=== PATIENT | female | born 1995 | race Caucasian/White ===

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

== ENCOUNTER 2017-03-25 19:33 | Emergency (ER) | payer OTHER, MEDICAID ==
[2017-03-25 19:49] VITALS: BP 106/69
--- NOTE | 2017-03-25 20:27 | EDM.PDOC ---
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 Worked cleaning today. No known injury. Has noted increased urinary frequency the last 2 days. Denies blood in urine. Onset: Today Onset Date: 03/25/17 Onset Time: 18:00 Duration: Intermittent Location: Reports: Abdomen Quality: Reports: Pressure Severity: Mild Improves with: Reports: None Worsens with: Reports: None Context: Reports: Activity Associated Symptoms: Reports: Other (urinary frequency) left abdominal Pain Score (Numeric/FACES): 6 - Related Data Allergies Allergy/AdvReac Type Severity Reaction Status Date / Time No Known Allergies Allergy Verified 03/25/17 19:55 Home Meds: Home Meds B12/Levomefolate Calcium/B-6 [Folbic Rf Tablet] 1 each PO DAILY 03/25/17 [ History] Vits #93/Iron Fum/FA [ Formula Tablet] 1 each PO DAILY [History] Past Medical History HEENT History: Reports: Impaired Vision Cardiovascular History: Reports: None Respiratory History: Reports: None Other Respiratory History: seasonal allergies Gastrointestinal History: Reports: None Genitourinary History: Reports: UTI, 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 (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 Below) Other OB/BYN History: Ovarian cysts Musculoskeletal History: Reports: None Neurological History: Reports: Migraines Psychiatric History: Reports: Depression, Suicide Attempt Endocrine/Metabolic History: Reports: None Hematologic History: Reports: None Immunologic History: Reports: None Oncologic (Cancer) History: Reports: None Dermatologic History: Reports: None - Infectious Disease History Infectious Disease History: Reports: Chicken Pox - Past Surgical History Head Surgeries/Procedures: Reports: None HEENT Surgical History: Reports: Other (See Below) Other HEENT Surgeries/Procedures: surgical repair of blocked tear duct Cardiovascular Surgical History: Reports: None Respiratory Surgical History: Reports: None GI Surgical History: Reports: None Female Surgical History: Reports: None Endocrine Surgical History: Reports: None Neurological Surgical History: Reports: None Musculoskeletal Surgical History: Reports: None Oncologic Surgical History: Reports: None Dermatological Surgical History: Reports: None Social & Family History - Tobacco Use Smoking Status *Q: Current Every Day Smoker Years of Tobacco use: 4 Packs/Tins Daily: 0.2 - Caffeine Use Caffeine Use: Reports: Coffee, Soda - Alcohol Use Days Per Week of Alcohol Use: 0 (Rare alcohol use) - Recreational Drug Use Recreational Drug Use: No Recreational Drug Type: Reports: Marijuana/Hashish ED ROS GENERAL - Review of Systems Review Of Systems: See Below Constitutional: Reports: No Symptoms HEENT: Reports: No Symptoms Respiratory: Reports: No Symptoms Cardiovascular: Reports: No Symptoms GI/Abdominal: Reports: Abdominal Pain : Reports: Frequency Musculoskeletal: Reports: Back Pain Skin: Reports: No Symptoms ED EXAM, RENAL/ - Physical Exam Exam: See Below Exam Limited By: No Limitations General Appearance: Alert, WD/WN, No Apparent Distress Ears: Normal External Exam, Normal Canal, Hearing Grossly Normal, Normal TMs Nose: Normal Inspection, Normal Mucosa, No Blood Throat/Mouth: Normal Inspection, Normal Lips, Normal Teeth, Normal Gums, Normal Oropharynx, Normal Voice, No Airway Compromise Head: Atraumatic, Normocephalic Neck: Normal Inspection, Supple, Non-Tender, Full Range of Motion Respiratory/Chest: No Respiratory Distress, Lungs Clear, Normal Breath Sounds, No Accessory Muscle Use, Chest Non-Tender Cardiovascular: Normal Peripheral Pulses, Regular Rate, Rhythm, No Edema, No Gallop, No JVD, No Murmur, No Rub GI/Abdominal: Normal Bowel Sounds, Soft, Non-Tender, No Organomegaly, No Distention, No Abnormal Bruit, No Mass (Female) Exam: Enlarged Uterus (at umbilicus), Heart Tones (WNL) Back Exam: Normal Inspection, Full Range of Motion, NT Extremities: Normal Inspection, Normal Range of Motion, Non-Tender, Normal Capillary Refill, No Pedal Edema Course - Vital Signs Last Recorded V/S: Last Vital Signs Temp 97.6 F 03/25/17 19:48 Pulse 67 03/25/17 19:48 Resp 14 03/25/17 19:48 BP 106/69 03/25/17 19:48 Pulse Ox 100 03/25/17 19:48 - Orders/Labs/Meds Labs: Laboratory Tests 03/25/17 Range/Units 20:53 Urine Color Yellow Urine Appearance Clear Urine pH 6.0 (4.5-8.0) Ur Specific Hollins 1.010 (1.008-1.030) Urine Protein Negative (NEGATIVE) mg/dL Urine Glucose (UA) Normal (NEGATIVE) mg/dL Urine Ketones Negative (NEGATIVE) mg/dL Urine Occult Blood Negative (NEGATIVE) Urine Nitrite Negative (NEGATIVE) Urine Bilirubin Negative (NEGATIVE) Urine Urobilinogen Normal (NORMAL) mg/dL Ur Leukocyte Esterase Negative (NEGATIVE) Urine RBC 0-5 (0-5) Urine WBC 0-5 (0-5) Ur Epithelial Cells Few Amorphous Sediment Few Urine Bacteria Rare Urine Mucus Few Departure - Departure Time of Disposition: 21:02 Disposition: Home, Self-Care 01 Condition: Good Clinical Impression: Pain of round ligament during - Discharge Information Forms: ED Department Discharge Additional Instructions: UA negative. Heart tones normal. No blood in the urine. Encouraged patient to take Tylenol as needed for pain. Go home to hydrate and rest. Followup if bleeding or pain remains unresolved. Pt states that she was treated for Chlamydia recently. Had repeat unprotected sex with the same partner who infected her. Unsure if he had been treated. Rx given for Zithromax 1gm po. Must abstain x 2 weeks during treatment. Stress condom use for STD prevention. - Problem List & Annotations (1) Pain of round ligament during SNOMED Code(s): [id number] Code(s): O26.899 - OTH RELATED CONDITIONS, UNSPECIFIED TRIMESTER; R10.2 - PELVIC AND PERINEAL PAIN Status: Acute Priority: Medium Current Visit: Yes
== END 2017-03-25 21:30 | disposition home or self-care (01) ==
LOC: JP.ED 19:33
DX: O26.892 Other specified pregnancy related conditions, second trimester (principal); R10.2 Pelvic and perineal pain; O99.342 Other mental disorders complicating pregnancy, second trimester; F32.9 Major depressive disorder, single episode, unspecified; O99.332 Smoking (tobacco) complicating pregnancy, second trimester; F17.210 Nicotine dependence, cigarettes, uncomplicated; O23.42 Unspecified infection of urinary tract in pregnancy, second trimester; Z79.899 Other long term (current) drug therapy; Z98.890 Other specified postprocedural states; Z3A.16 16 weeks gestation of pregnancy
CPT/HCPCS: 81001; 99284

== ENCOUNTER 2017-08-05 13:05 | Emergency (ER) | payer MEDICAID ==
[2017-08-05] MEDS ORDERED: Ondansetron 4 MG Tab.DIS PO ONE (14:06)
--- NOTE | 2017-08-05 14:08 | EDM.PDOC ---
ED HPI GENERAL MEDICAL PROBLEM - General Chief Complaint: Gastrointestinal Problem Stated Complaint: PUKING; HOT/COLD SWEATS Time Seen by Provider: 08/05/17 13:50 Source of Information: Reports: Patient History Limitations: Reports: No Limitations - History of Present Illness INITIAL COMMENTS - FREE TEXT/NARRATIVE: 22-year-old female went to a movie last night with her boyfriend, at around midnight he started getting nauseous and vomiting and later developed diarrhea. Intermittent stomach cramps as well. 2 hours later she started developing nausea and vomiting as well. Feels hot and cold. She is in her third trimester . She feels the baby moving normally. Severity: Mild Associated Symptoms: Reports: Loss of Appetite, Malaise, Nausea/Vomiting. 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: Other (See Below) Other OB/BYN History: Ovarian cysts Musculoskeletal History: Reports: None Neurological History: Reports: Migraines Psychiatric History: Reports: Depression, Suicide Attempt Endocrine/Metabolic History: Reports: None Hematologic History: Reports: None Immunologic History: Reports: None Oncologic (Cancer) History: Reports: None Dermatologic History: Reports: None - Infectious Disease History Infectious Disease History: Reports: Chicken Pox - Past Surgical History Head Surgeries/Procedures: Reports: None HEENT Surgical History: Reports: Other (See Below) Other HEENT Surgeries/Procedures: surgical repair of blocked tear duct Cardiovascular Surgical History: Reports: None Respiratory Surgical History: Reports: None GI Surgical History: Reports: None Female Surgical History: Reports: None Endocrine Surgical History: Reports: None Neurological Surgical History: Reports: None Musculoskeletal Surgical History: Reports: None Oncologic Surgical History: Reports: None Dermatological Surgical History: Reports: None Social & Family History - Tobacco Use Smoking Status *Q: Current Every Day Smoker Years of Tobacco use: 4 Packs/Tins Daily: 0.2 - Caffeine Use Caffeine Use: Reports: Coffee, Soda - Alcohol Use Days Per Week of Alcohol Use: 0 (Rare alcohol use) - Recreational Drug Use Recreational Drug Use: No Recreational Drug Type: Reports: Marijuana/Hashish ED ROS GENERAL - Review of Systems Review Of Systems: See Below Constitutional: Reports: Chills, Malaise HEENT: Reports: No Symptoms Respiratory: Denies: Shortness of Breath, Cough Cardiovascular: Denies: Chest Pain GI/Abdominal: Reports: Nausea, Vomiting. Denies: Abdominal Pain, Diarrhea Neurological: Reports: Dizziness. Denies: Headache ED EXAM, GI/ABD - Physical Exam Exam: See Below Exam Limited By: No Limitations General Appearance: Alert, No Apparent Distress Eyes: Bilateral: Normal Appearance (Normal hydration) Throat/Mouth: Normal Inspection (Well-hydrated) Respiratory/Chest: No Respiratory Distress, Lungs Clear GI/Abdominal Exam: Abnormal Bowel Sounds (Pulse ox are hypoactive, no significant abdominal tenderness) Course - Vital Signs Last Recorded V/S: Last Vital Signs Temp 98.1 F 08/05/17 14:55 Pulse 101 H 08/05/17 14:55 Resp 14 08/05/17 14:55 BP 103/72 08/05/17 14:55 Pulse Ox 99 08/05/17 14:55 - Orders/Labs/Meds Meds: Medications Discontinued Medications Generic Name Dose Route Start Last Admin Trade Name Shayy PRN Reason Stop Dose Admin Ondansetron HCl 4 mg 08/05/17 14:06 08/05/17 14:18 Zofran Odt PO 08/05/17 14:07 4 mg ONETIME ONE Administration - Re-Assessments/Exams Free Text/Narrative Re-Assessment/Exam: 08/05/17 14:07 Give the patient a sublingual dose of Zofran. This is almost certainly viral I will run its course, no IV hydration is necessary at this time. 08/05/17 14:58 Patient was observed for an hour and had no additional vomiting and is feeling better. She was discharged with 5 additional doses of Zofran to use as needed for the next 24-48 hours. Increase diet and activity as tolerated and return if worsening. Departure - Departure Time of Disposition: 15:11 Disposition: Home, Self-Care 01 Condition: Good Clinical Impression: Gastroenteritis - Discharge Information Instructions: Viral Gastroenteritis, Adult, [id number] Referrals: Penny Bowen CNM [Primary Care Provider] - Forms: ED Department Discharge Care Plan Goals: Use Zofran for nausea if needed, increase diet as tolerated concentrating on fluids initially. Return anytime if worsening or concerns despite nausea treatment.
[2017-08-05 14:57] VITALS: BP 103/72
== END 2017-08-05 15:12 | disposition home or self-care (01) ==
LOC: JP.ED 13:05
DX: O99.613 Diseases of the digestive system complicating pregnancy, third trimester (principal); K52.9 Noninfective gastroenteritis and colitis, unspecified; O99.333 Smoking (tobacco) complicating pregnancy, third trimester; F17.210 Nicotine dependence, cigarettes, uncomplicated; Z3A.35 35 weeks gestation of pregnancy
CPT/HCPCS: 99284; A9270

== ENCOUNTER 2017-08-13 12:43 | Inpatient (IN) | payer MEDICAID ==
[2017-08-13] MEDS ORDERED: Ondansetron 4 MG Tab.DIS PO PRN (13:48)
[2017-08-13] MEDS ORDERED: Acetaminophen 325 MG Tab PO PRN (13:48)
[2017-08-13] MEDS ORDERED: Penicillin G Potassium 5 MILLUNITS in Sodium Chloride 0.9% 50 ML IV ONE (14:15)
[2017-08-13] MEDS ORDERED: fentaNYL 100 MCG/2 ML SDV IVPUSH ONE (14:15)
[2017-08-13] MEDS: Penicillin G Potassium 2.5 MILLUNITS in Sodium Chloride 0.9% 50 ML IV SCH ×2 (18:07→21:40)
--- NOTE | 2017-08-13 18:22 | PCM.LDHP ---
L&D History of Present Illness - General Date of Service: 08/13/17 (PPROM) Admit Problem/Dx: Patient Status Order with Admit Dx/Problem 08/13/17 13:49 Patient Status [ADT] Routine Admission Diagnosis/Problem Admission Diagnosis/Problem and not yet delivered Source of Information: Patient History Limitations: Reports: No Limitations - History of Present Illness Introduction:: This 22 year old G1 who is 36 2/7 weeks gestation presented today with ruptured membranes. Amniosure was positive and she has continued to leak clear fluid. unknown GBS status as she didn't have to 36 weeks visit yet. Labs: HIV neg ABO O pos Hep B neg Rubella non-immune HGB 10.6 PLT 319 Timing/Duration: Reports: minutes: (4) Location, : Reports: Abdomen Severity: Mild Improves with: Reports: None Worsens with: Reports: None - Related Data Allergies/Adverse Reactions: Allergies Allergy/AdvReac Type Severity Reaction Status Date / Time No Known Allergies Allergy Verified 08/05/17 14:04 Home Medications: Home Meds Vits #93/Iron Fum/FA [ Formula Tablet] 1 each PO DAILY [History] Ondansetron [Zofran ODT] 4 mg PO Q8HR PRN 08/08/17 [History] Past Medical History HEENT History: Reports: Impaired Vision Cardiovascular History: Reports: None Respiratory History: Reports: None Other Respiratory History: seasonal allergies Gastrointestinal History: Reports: None Genitourinary History: Reports: UTI, Recurrent 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: , Other (See Below) : 1 Para: 0 LMP (Approximate): ([place] 09/08/17) Other OB/BYN History: Ovarian cysts Musculoskeletal History: Reports: None Neurological History: Reports: Migraines Psychiatric History: Reports: Depression, Suicide Attempt Endocrine/Metabolic History: Reports: None Hematologic History: Reports: None Immunologic History: Reports: None Oncologic (Cancer) History: Reports: None Dermatologic History: Reports: None - Infectious Disease History Infectious Disease History: Reports: Chicken Pox - Past Surgical History Head Surgeries/Procedures: Reports: None HEENT Surgical History: Reports: Other (See Below) Other HEENT Surgeries/Procedures: surgical repair of blocked tear duct Cardiovascular Surgical History: Reports: None Respiratory Surgical History: Reports: None GI Surgical History: Reports: None Female Surgical History: Reports: None Endocrine Surgical History: Reports: None Neurological Surgical History: Reports: None Musculoskeletal Surgical History: Reports: None Oncologic Surgical History: Reports: None Dermatological Surgical History: Reports: None Social & Family History - Family History Other Oncologic Family History: dad had cancer but not sure what kind - Tobacco Use Smoking Status *Q: Former Smoker Years of Tobacco use: 4 Packs/Tins Daily: 0.2 Used Tobacco, but Quit: Yes Month Tobacco Last Used: February - Caffeine Use Caffeine Use: Reports: Soda Other Caffeine Use: 1 per day - Alcohol Use Days Per Week of Alcohol Use: 0 (Rare alcohol use) - Recreational Drug Use Recreational Drug Use: Yes Drug Use in Last 12 Months: No Recreational Drug Type: Reports: Marijuana/Hashish Recreational Drug Use Frequency: Not Used In Over 6 Months H&P Review of Systems - Review of Systems: Review Of Systems: See Below General: Reports: No Symptoms HEENT: Reports: No Symptoms Pulmonary: Reports: No Symptoms Cardiovascular: Reports: No Symptoms Gastrointestinal: Reports: No Symptoms Genitourinary: Reports: No Symptoms Musculoskeletal: Reports: No Symptoms Skin: Reports: No Symptoms Psychiatric: Reports: No Symptoms Neurological: Reports: No Symptoms Hematologic/Lymphatic: Reports: No Symptoms Immunologic: Reports: No Symptoms L&D Exam - Exam Exam: See Below - Vital Signs Vital Signs: Last Vital Signs Temp 97.9 F 08/13/17 15:30 Pulse 72 08/13/17 16:35 Resp 14 08/13/17 12:55 BP 114/62 08/13/17 16:35 Pulse Ox 99 08/13/17 12:55 Weight: 148 lb 10.724 oz - OB Specific Contraction Duration (sec): 70-90 Contraction Frequency (min): 2-4 Contraction Intensity: Mild to Moderate Movement: Active Heart Tones: Present Heart Tones per Min: 140 Heart Rate (FHR) Variability: Moderate (6-25 bmp) Presentation: Vertex - Browning Score Browning Score Cervix Position: Anterior Browning Score Consistency: Medium Browning Score Effacement: 0-30% Browning Score Dilation: Closed Browning Score Infant's Station: -1 ,0 Browning Score Total: 5 - Exam General: Alert, Oriented HEENT: PERRLA Neck: Supple Lungs: Clear to Auscultation, Normal Respiratory Effort Cardiovascular: Regular Rate, Regular Rhythm GI/Abdominal Exam: Soft Rectal Exam: Normal Exam Genitourinary: Cervical fluid, Enlarged uterus Back Exam: Normal Inspection Extremities: Normal Inspection, No Pedal Edema Skin: Warm Neurological: Reflexes Equal Bilateral Psychiatric: Alert, Normal Affect, Normal Mood - Patient Data Lab Results Last 24 hrs: Laboratory Results - last 24 hr 08/13/17 08/13/17 08/13/17 Range/Units 12:52 13:10 13:48 WBC 10.7 (4.5-11.0) K/uL RBC 3.69 (3.30-5.50) M/uL Hgb 10.6 L (12.0-15.0) g/dL Hct 32.7 L (36.0-48.0) % MCV 89 (80-98) fL MCH 29 (27-31) pg MCHC 32 (32-36) % Plt Count 319 (150-400) K/uL Neut % (Auto) 65 (36-66) % Lymph % (Auto) 26 (24-44) % [place] % (Auto) 8 H (2-6) % Eos % (Auto) 1 L (2-4) % Baso % (Auto) 0 (0-1) % Urine Color Yellow Urine Appearance Clear Urine pH 7.0 (4.5-8.0) Ur Specific [place] 1.010 (1.008-1.030) Urine Protein Negative (NEGATIVE) mg/dL Urine Glucose (UA) Normal (NEGATIVE) mg/dL Urine Ketones Negative (NEGATIVE) mg/dL Urine Occult Blood Negative (NEGATIVE) Urine Nitrite Negative (NEGATIVE) Urine Bilirubin Negative (NEGATIVE) Urine Urobilinogen Normal (NORMAL) mg/dL Ur Leukocyte Esterase Negative (NEGATIVE) Urine RBC 0-5 (0-5) Urine WBC 0-5 (0-5) Ur Epithelial Cells Many Amorphous Sediment Not seen Urine Bacteria Not seen Urine Mucus Few Membrane Rupture Positive H (NEGATIVE) Urine Opiates Screen (NEGATIVE) Ur Oxycodone Screen (NEGATIVE) Urine Methadone Screen (NEGATIVE) Ur Propoxyphene Screen (NEGATIVE) Ur Barbiturates Screen (NEGATIVE) Ur Tricyclics Screen (NEGATIVE) Ur Phencyclidine Scrn (NEGATIVE) Ur Amphetamine Screen (NEGATIVE) U Methamphetamines Scrn (NEGATIVE) Urine MDMA Screen (NEGATIVE) U Benzodiazepines Scrn (NEGATIVE) U Cocaine Metab Screen (NEGATIVE) U Marijuana (THC) Screen (NEGATIVE) 08/13/17 Range/Units 14:38 WBC (4.5-11.0) K/uL RBC (3.30-5.50) M/uL Hgb (12.0-15.0) g/dL Hct (36.0-48.0) % MCV (80-98) fL MCH (27-31) pg MCHC (32-36) % Plt Count (150-400) K/uL Neut % (Auto) (36-66) % Lymph % (Auto) (24-44) % [place] % (Auto) (2-6) % Eos % (Auto) (2-4) % Baso % (Auto) (0-1) % Urine Color Urine Appearance Urine pH (4.5-8.0) Ur Specific [place] (1.008-1.030) Urine Protein (NEGATIVE) mg/dL Urine Glucose (UA) (NEGATIVE) mg/dL Urine Ketones (NEGATIVE) mg/dL Urine Occult Blood (NEGATIVE) Urine Nitrite (NEGATIVE) Urine Bilirubin (NEGATIVE) Urine Urobilinogen (NORMAL) mg/dL Ur Leukocyte Esterase (NEGATIVE) Urine RBC (0-5) Urine WBC (0-5) Ur Epithelial Cells Amorphous Sediment Urine Bacteria Urine Mucus Membrane Rupture (NEGATIVE) Urine Opiates Screen Negative (NEGATIVE) Ur Oxycodone Screen Negative (NEGATIVE) Urine Methadone Screen Negative (NEGATIVE) Ur Propoxyphene Screen Negative (NEGATIVE) Ur Barbiturates Screen Negative (NEGATIVE) Ur Tricyclics Screen Negative (NEGATIVE) Ur Phencyclidine Scrn Negative (NEGATIVE) Ur Amphetamine Screen Negative (NEGATIVE) U Methamphetamines Scrn Negative (NEGATIVE) Urine MDMA Screen Negative (NEGATIVE) U Benzodiazepines Scrn Negative (NEGATIVE) U Cocaine Metab Screen Negative (NEGATIVE) U Marijuana (THC) Screen Negative (NEGATIVE) Result Diagrams: 08/13/17 13:48 - Problem List (1) premature rupture of membranes (PPROM) delivered, current hospitalization SNOMED Code(s): 064222602 ICD Code: O42.919 - PRETRM LUÍS ROM, UNSP TIME BETW RUPT AND ONST LABR, UNSP TRI Status: Acute Current Visit: Yes (2) SNOMED Code(s): 89344874 ICD Code: Z34.90 - ENCNTR FOR SUPRVSN OF NORMAL , UNSP, UNSP TRIMESTER Status: Acute Current Visit: Yes Qualifiers: Weeks of gestation: 36 weeks Qualified Code(s): Z3A.36 - 36 weeks gestation of Problem List Initiated/Reviewed/Updated: Yes Orders Last 24hrs: Active Orders 24 hr Category Date Time Status Patient Status [ADT] Routine ADT 08/13/17 13:49 Active Antiembolic Devices [RC] .Routine Care 08/13/17 13:50 Active Communication Order [RC] ASDIRECTED Care 08/13/17 13:49 Active Communication Order [RC] ASDIRECTED Care 08/13/17 13:49 Active Communication Order [RC] ASDIRECTED Care 08/13/17 13:49 Active Communication Order [RC] ASDIRECTED Care 08/13/17 13:49 Active Notify Provider [RC] PRN Care 08/13/17 13:49 Active Notify Provider [RC] PRN Care 08/13/17 13:49 Active Notify Provider [RC] STAT Care 08/13/17 13:49 Active OB Check [OM.PC] Click to Edit Care 08/13/17 12:51 Ordered VTE/DVT Education [RC] Click to Edit Care 08/13/17 13:50 Active Vital Signs [RC] PER UNIT ROUTINE Care 08/13/17 13:49 Active Regular Diet [DIET] Diet 08/13/17 Dinner Active CULTURE GROUP B STREP [RM] Routine Lab 08/13/17 13:19 Received Acetaminophen [Tylenol] Med 08/13/17 13:48 Active 650 mg PO Q4H PRN Ondansetron [Zofran ODT] Med 08/13/17 13:48 Active 4 mg PO Q4H PRN Oxytocin/Normal Saline [Pitocin in NS 20 Units/1,000 ML Med 08/13/17 14:30 Active ] 20 unit in 1,000 ml IV TITRATE Penicillin G Potassium [Pfizerpen] 2.5 millunits Med 08/13/17 18:00 Active Sodium Chloride 0.9% [Normal Saline] 50 ml IV Q4H DVT/VTE Prophylaxis Reflex [OM.PC] Routine Oth 08/13/17 13:48 Ordered Resuscitation Status Routine Resus Stat 08/13/17 13:48 Ordered Medication Orders Acetaminophen (Tylenol) 650 mg PO Q4H PRN PRN Reason: mild pain and fever Penicillin G Potassium 2.5 (millunits/ Sodium Chloride) 50 mls @ 100 mls/hr IV Q4H MINO Last Admin: 08/13/17 18:07 Dose: 100 mls/hr Oxytocin/Sodium Chloride (Pitocin In Ns 20 Units/1,000 Ml) 20 unit in 1,000 mls @ 9 mls/hr IV TITRATE MINO; 3 MUNITS/MIN PRN Reason: Protocol Last Titration: 08/13/17 18:09 Dose: 13 munits/min, 39 mls/hr Titration: 08/13/17 17:00 Dose: 11 munits/min, 33 mls/hr Titration: 08/13/17 16:30 Dose: 9 munits/min, 27 mls/hr Titration: 08/13/17 16:00 Dose: 7 munits/min, 21 mls/hr Titration: 08/13/17 15:30 Dose: 5 munits/min, 15 mls/hr Titration: 08/13/17 15:00 Dose: 3 munits/min, 9 mls/hr Admin: 08/13/17 14:30 Dose: 3 munits/min, 3 mls/hr Ondansetron HCl (Zofran Odt) 4 mg PO Q4H PRN PRN Reason: Nausea/Vomiting Assessment/Plan Comment:: 08/13/17 22 year old g1 who is 36 2/7 weeks with PPROM clear fluid pitocin induction GBS swab done but prophylaxis started Limit vaginal exam and did explain this to the patient and family. Needs Rubella after delivery of baby. pain management per request of patient up and about this evening Plan for vaginal delivery.
--- NOTE | 2017-08-13 20:03 | PCM.PNLD ---
Labor Progress Note - VS & Meds Vital Signs: Last Vital Signs Temp 97.9 F 08/13/17 15:30 Pulse 72 08/13/17 16:35 Resp 14 08/13/17 12:55 BP 114/62 08/13/17 16:35 Pulse Ox 99 08/13/17 12:55 Active Medications: Current Medications Acetaminophen (Tylenol) 650 mg PO Q4H PRN PRN Reason: mild pain and fever Penicillin G Potassium 2.5 (millunits/ Sodium Chloride) 50 mls @ 100 mls/hr IV Q4H MINO Last Admin: 08/13/17 18:07 Dose: 100 mls/hr Oxytocin/Sodium Chloride (Pitocin In Ns 20 Units/1,000 Ml) 20 unit in 1,000 mls @ 9 mls/hr IV TITRATE MINO; 3 MUNITS/MIN PRN Reason: Protocol Last Titration: 08/13/17 19:37 Dose: 17 munits/min, 51 mls/hr Ondansetron HCl (Zofran Odt) 4 mg PO Q4H PRN PRN Reason: Nausea/Vomiting Discontinued Medications Fentanyl (Sublimaze) 100 mcg IVPUSH ONETIME ONE Stop: 08/13/17 14:16 Last Admin: 08/13/17 14:31 Dose: Not Given Oxytocin/Sodium Chloride (Pitocin In Ns 20 Units/1,000 Ml) 20 unit in 1,000 mls @ 999 mls/hr IV ONETIME ONE PRN Reason: Protocol Stop: 08/13/17 14:53 Last Titration: 08/13/17 15:01 Dose: 999 mls/hr Penicillin G Potassium 5 (millunits/ Sodium Chloride) 50 mls @ 100 mls/hr IV ONETIME ONE Stop: 08/13/17 14:44 Last Admin: 08/13/17 14:02 Dose: 100 mls/hr - Uterine Contractions Uterine Monitoring Mode: External Tool Contraction Frequency (min): 1.5-3 Contraction Duration (sec): 60-80 Contraction Intensity: Mild Uterine Resting Tone: Soft - Monitoring Monitor Mode: Doppler/Auscultation Heart Rate (FHR) Baseline: 140 Heart Rate (FHR) Variability: Moderate (6-25 bmp) Accelerations: Present, 15x15 Decelerations: None Strip Review: Category I - Vaginal Exam Dilation (cm): 1 Station: 0 Cervical Position: Midposition Sterile Vaginal Exam Performed By: Aleah Sheridan Vaginal Exam Comment: Has made prpgress since this afternoon. continues to leak clear fluid - Labor Progress (Free Text) Labor Progress: CE: / leaking clear fluid. Contractions every 2-4 minutes. Cat one strip. Doing well Pain management per patient request. Plan for vaginal delivery
[2017-08-14] MEDS ORDERED: Calcium Carbonate 500 MG Tab.Chew PO ONE (00:43)
[2017-08-14] MEDS ORDERED: Calcium Carbonate 500 MG Tab.Chew ONE (00:53)
[2017-08-14] MEDS ORDERED: ePHEDrine 50 MG/ML SDV ONE (02:13)
[2017-08-14] MEDS ORDERED: Lactated Ringers 1,000 ML IV SCH (02:15)
[2017-08-14] MEDS: Penicillin G Potassium 2.5 MILLUNITS in Sodium Chloride 0.9% 50 ML IV SCH ×2 (02:18→06:55)
[2017-08-14] MEDS ORDERED: Ropivacaine 100 ML ONE (03:13)
--- NOTE | 2017-08-14 03:54 | ANES ---
DATE OF SERVICE: 08/14/2017 INDICATIONS: Sravani is a 22-year-old female, patient of [facility], who is in prolonged stage II labor, #[id number]. I was requested to assess her for labor epidural placement. Upon arrival, I found a 22-year-old female, discussed with her health history as well as reviewed lab work and health history and documentation, found no contraindication to have labor epidural placement. Discussed with her the risks and benefits of the procedure. She was okay to proceed and consent was received. DESCRIPTION OF PROCEDURE: I had her seated at the edge of the bed. Betadine prep x3 to lumbar region. Sterile drape was placed, 1% lidocaine skin wheal as well as deep at the L3- L4 region. A 17-gauge Tuohy was placed to loss of resistance with ease. Negative CSF, negative heme, negative paresthesia. I inserted a catheter to 12 cm. I then injected a test dose of 3 mL of 1.5% lidocaine with 1:200,000 epinephrine, negative results from that. I secured the catheter, placed her in a supine position, dosed her with 12 mL of 0.2% ropivacaine, and began an infusion of that same 12 mL an hour of 0.2% ropivacaine. The patient tolerated the procedure quite well. I reported off to a nurse in the room. Kervin Arias CRNA /[id number]
[2017-08-14] MEDS ORDERED: diphenhydrAMINE 50 MG/ML SDV IVPUSH PRN (03:55)
[2017-08-14] MEDS ORDERED: Naloxone 0.4 MG/ML SDV IVPUSH PRN (03:55)
[2017-08-14] MEDS ORDERED: ePHEDrine 50 MG/ML SDV IVPUSH PRN (03:55)
[2017-08-14] MEDS ORDERED: Ropivacaine 100 ML EPIDUR SCH (03:55)
[2017-08-14] MEDS ORDERED: Calcium Carbonate 500 MG Tab.Chew PO PRN (06:12)
[2017-08-14] MEDS ORDERED: Docusate Sodium 100 MG Cap PO PRN (06:30)
[2017-08-14] MEDS ORDERED: Measles, Mumps & Rubella Vaccine 0.5 ML SDV SUBCUT ONE (06:30)
[2017-08-14] MEDS ORDERED: Ibuprofen 600 MG Tab PO PRN (06:30)
--- NOTE | 2017-08-14 06:47 | PCM.DEL ---
L & D Note - General Info Date of Service: 08/14/17 Mother's Due Date: 09/08/17 - Delivery Note Labor: Spontaneous Cervical Ripening Method: Oxytocin Delivery Outcome: Livebirth Delivery Method: Spontaneous Vaginal Delivery-Single Infant Delivery Mode: Spontaneous Presentation: Vertex Nuchal Cord: None Anesthesia Type: Epidural Amniotic Fluid Description: Clear Episiotomy Type: None Laceration: 1st Degree, Labial Suture type: Vicryl Suture size: 3-0 Placenta: Intact, Spontaneous Cord: 3 Vessels Estimated Blood Loss: 200 Resuscitation Needed: No : Stimulated, [place] Used Provider: Aleah Sheridan Score 1 min: 9 Score 5 min: 9 Score 10 min: 9 Second Stage Interventions: Reports: Pushing Effectively, Pushing, Pulls Own Legs Back Delivery Comments (Free Text/Narrative):: This 22 year old G1 now P1 who is 36 3/7 weeks delivered via at 0542 in ANT[place]LLA position a viable female infant. She was placed on mother's abdomen where she cried spontaneously. She was dried and stimulated. Apgars of 9,9,9. Three vessel cord, The placenta was expressed spontaneously intact. She had a right labial first degree tear that was bleeding. It was repaired with a running suture. One suture left labia to control bleeding. EBL 200cc Mother and baby to post and nursery in stable condition. First stage 3858-4141 Second stage 3711-5271 Third [id number] Induction Criteria - Browning Score Browning Score Dilation: Closed Browning Score Effacement: 0-30% Browning Score 's Station: -1 ,0 Browning Score Consistency: Medium Browning Score Cervix Position: Anterior Browning Score Total: 5 Browning Score Presenting Part: Reports: Cephalic - Induction Gestational Age >/= 39 wks: No Medical Indication: PPROM Estimated Pelvis: Reports: Adequate Reassuring Monitoring Strip: Yes Absence of Tachy Systole: Yes - General Info Date of Service: 08/14/17 (normal delivery) Functional Status: Reports: Pain Controlled - Review of Systems General: Reports: No Symptoms HEENT: Reports: No Symptoms Pulmonary: Reports: No Symptoms Cardiovascular: Reports: No Symptoms Gastrointestinal: Reports: No Symptoms Genitourinary: Reports: No Symptoms Musculoskeletal: Reports: No Symptoms Skin: Reports: No Symptoms Neurological: Reports: No Symptoms Psychiatric: Reports: No Symptoms - Patient Data Vitals - Most Recent: Last Vital Signs Temp 97.3 F 08/13/17 23:40 Pulse 83 08/14/17 04:40 Resp 16 08/14/17 04:40 BP 106/64 08/14/17 04:40 Pulse Ox 97 08/14/17 04:40 Weight - Most Recent: 148 lb 10.724 oz I&O - Last 24 Hours: Intake & Output 08/13/17 08/13/17 08/14/17 14:59 22:59 06:59 Intake Total 50 1050 Balance 50 1050 Lab Results Last 24 Hours: Laboratory Results - last 24 hr 08/13/17 08/13/17 08/13/17 Range/Units 12:52 13:10 13:48 WBC 10.7 (4.5-11.0) K/uL RBC 3.69 (3.30-5.50) M/uL Hgb 10.6 L (12.0-15.0) g/dL Hct 32.7 L (36.0-48.0) % MCV 89 (80-98) fL MCH 29 (27-31) pg MCHC 32 (32-36) % Plt Count 319 (150-400) K/uL Neut % (Auto) 65 (36-66) % Lymph % (Auto) 26 (24-44) % [place] % (Auto) 8 H (2-6) % Eos % (Auto) 1 L (2-4) % Baso % (Auto) 0 (0-1) % Urine Color Yellow Urine Appearance Clear Urine pH 7.0 (4.5-8.0) Ur Specific [place] 1.010 (1.008-1.030) Urine Protein Negative (NEGATIVE) mg/dL Urine Glucose (UA) Normal (NEGATIVE) mg/dL Urine Ketones Negative (NEGATIVE) mg/dL Urine Occult Blood Negative (NEGATIVE) Urine Nitrite Negative (NEGATIVE) Urine Bilirubin Negative (NEGATIVE) Urine Urobilinogen Normal (NORMAL) mg/dL Ur Leukocyte Esterase Negative (NEGATIVE) Urine RBC 0-5 (0-5) Urine WBC 0-5 (0-5) Ur Epithelial Cells Many Amorphous Sediment Not seen Urine Bacteria Not seen Urine Mucus Few Membrane Rupture Positive H (NEGATIVE) Urine Opiates Screen (NEGATIVE) Ur Oxycodone Screen (NEGATIVE) Urine Methadone Screen (NEGATIVE) Ur Propoxyphene Screen (NEGATIVE) Ur Barbiturates Screen (NEGATIVE) Ur Tricyclics Screen (NEGATIVE) Ur Phencyclidine Scrn (NEGATIVE) Ur Amphetamine Screen (NEGATIVE) U Methamphetamines Scrn (NEGATIVE) Urine MDMA Screen (NEGATIVE) U Benzodiazepines Scrn (NEGATIVE) U Cocaine Metab Screen (NEGATIVE) U Marijuana (THC) Screen (NEGATIVE) 08/13/17 Range/Units 14:38 WBC (4.5-11.0) K/uL RBC (3.30-5.50) M/uL Hgb (12.0-15.0) g/dL Hct (36.0-48.0) % MCV (80-98) fL MCH (27-31) pg MCHC (32-36) % Plt Count (150-400) K/uL Neut % (Auto) (36-66) % Lymph % (Auto) (24-44) % [place] % (Auto) (2-6) % Eos % (Auto) (2-4) % Baso % (Auto) (0-1) % Urine Color Urine Appearance Urine pH (4.5-8.0) Ur Specific [place] (1.008-1.030) Urine Protein (NEGATIVE) mg/dL Urine Glucose (UA) (NEGATIVE) mg/dL Urine Ketones (NEGATIVE) mg/dL Urine Occult Blood (NEGATIVE) Urine Nitrite (NEGATIVE) Urine Bilirubin (NEGATIVE) Urine Urobilinogen (NORMAL) mg/dL Ur Leukocyte Esterase (NEGATIVE) Urine RBC (0-5) Urine WBC (0-5) Ur Epithelial Cells Amorphous Sediment Urine Bacteria Urine Mucus Membrane Rupture (NEGATIVE) Urine Opiates Screen Negative (NEGATIVE) Ur Oxycodone Screen Negative (NEGATIVE) Urine Methadone Screen Negative (NEGATIVE) Ur Propoxyphene Screen Negative (NEGATIVE) Ur Barbiturates Screen Negative (NEGATIVE) Ur Tricyclics Screen Negative (NEGATIVE) Ur Phencyclidine Scrn Negative (NEGATIVE) Ur Amphetamine Screen Negative (NEGATIVE) U Methamphetamines Scrn Negative (NEGATIVE) Urine MDMA Screen Negative (NEGATIVE) U Benzodiazepines Scrn Negative (NEGATIVE) U Cocaine Metab Screen Negative (NEGATIVE) U Marijuana (THC) Screen Negative (NEGATIVE) Med Orders - Current: Current Medications Acetaminophen (Tylenol) 650 mg PO Q4H PRN PRN Reason: mild pain and fever Calcium Carbonate/Glycine (Tums) 1,000 mg PO Q2H PRN PRN Reason: Indigestion Diphenhydramine HCl (Benadryl) 25 mg IVPUSH Q6H PRN PRN Reason: ITCHING Docusate Sodium (Colace) 100 mg PO BID PRN PRN Reason: Constipation Ephedrine Sulfate (Ephedrine Sulfate) 5 - 10 mg IVPUSH ASDIRECTED PRN PRN Reason: IF SYSTOLIC BP LESS THAN 100 Penicillin G Potassium 2.5 (millunits/ Sodium Chloride) 50 mls @ 100 mls/hr IV Q4H MINO Last Admin: 08/14/17 02:18 Dose: 100 mls/hr Oxytocin/Sodium Chloride (Pitocin In Ns 20 Units/1,000 Ml) 20 unit in 1,000 mls @ 9 mls/hr IV TITRATE MINO; 3 MUNITS/MIN PRN Reason: Protocol Last Titration: 08/14/17 02:43 Dose: 22 munits/min, 66 mls/hr Lactated Ringer's (Ringers, Lactated) 1,000 mls @ 999 mls/hr IV BOLUS MINO Last Admin: 08/14/17 01:30 Dose: 999 mls/hr Ropivacaine (Naropin 0.2%) 100 mls @ 10 mls/hr EPIDUR ASDIRECTED MINO Oxytocin/Sodium Chloride (Pitocin In Ns 20 Units/1,000 Ml) 1,000 mls @ 6 mls/ hr IV TITRATE MINO; 2 MUNITS/MIN PRN Reason: Protocol Ibuprofen (Motrin) 600 mg PO Q6H PRN PRN Reason: mild pain or fever Measles/Mumps/Rubella Vaccine Live (M-M-R Ii Vaccine) 0.5 ml SUBCUT .ONCE ONE Stop: 08/14/17 06:31 Naloxone HCl (Narcan) 0.1 mg IVPUSH Q5M PRN PRN Reason: IF RESP RATE LESS THAN 6 Ondansetron HCl (Zofran Odt) 4 mg PO Q4H PRN PRN Reason: Nausea/Vomiting Discontinued Medications Calcium Carbonate/Glycine (Tums) 1,000 mg PO ONETIME ONE Stop: 08/14/17 00:44 Last Admin: 08/14/17 00:55 Dose: 1,000 mg Calcium Carbonate/Glycine (Tums) Confirm Administered Dose 1,000 mg .ROUTE .STK- MED ONE Stop: 08/14/17 00:54 Last Admin: 08/14/17 01:04 Dose: Not Given Ephedrine Sulfate (Ephedrine Sulfate) Confirm Administered Dose 50 mg .ROUTE .STK-MED ONE Stop: 08/14/17 02:14 Last Admin: 08/14/17 04:59 Dose: Not Given Fentanyl (Sublimaze) 100 mcg IVPUSH ONETIME ONE Stop: 08/13/17 14:16 Last Admin: 08/13/17 14:31 Dose: Not Given Oxytocin/Sodium Chloride (Pitocin In Ns 20 Units/1,000 Ml) 20 unit in 1,000 mls @ 999 mls/hr IV ONETIME ONE PRN Reason: Protocol Stop: 08/13/17 14:53 Last Titration: 08/13/17 15:01 Dose: 999 mls/hr Penicillin G Potassium 5 (millunits/ Sodium Chloride) 50 mls @ 100 mls/hr IV ONETIME ONE Stop: 08/13/17 14:44 Last Admin: 08/13/17 14:02 Dose: 100 mls/hr Ropivacaine (Naropin 0.2%) Confirm Administered Dose 100 mls @ as directed .ROUTE .STK-MED ONE Stop: 08/14/17 03:14 - Exam General: Alert, Oriented HEENT: Pupils Equal, Pupils Reactive Neck: Supple Lungs: Clear to Auscultation, Normal Respiratory Effort Cardiovascular: Regular Rate, Regular Rhythm GI/Abdominal Exam: Normal Bowel Sounds (Female) Exam: Normal External Exam, Cervical Dilatation, Enlarged Uterus, Vaginal Bleeding Back Exam: Normal Inspection Extremities: Normal Inspection, No Pedal Edema Skin: Warm, Dry Neurological: No New Focal Deficit Psy/Mental Status: Alert, Normal Affect, Normal Mood - Problem List & Annotations (1) premature rupture of membranes (PPROM) delivered, current hospitalization SNOMED Code(s): 822990281 Code(s): O42.919 - PRETRM LUÍS ROM, UNSP TIME BETW RUPT AND ONST LABR, UNSP TRI Status: Acute Current Visit: Yes (2) SNOMED Code(s): 67405540 Code(s): Z34.90 - ENCNTR FOR SUPRVSN OF NORMAL , UNSP, UNSP TRIMESTER Status: Acute Current Visit: Yes Qualifiers: Weeks of gestation: 36 weeks Qualified Code(s): Z3A.36 - 36 weeks gestation of (3) , 2,500 or more grams SNOMED Code(s): 776876750 Code(s): P07.30 - , UNSPECIFIED WEEKS OF GESTATION Status: Acute Current Visit: Yes (4) Normal labor and delivery SNOMED Code(s): 37139506 Code(s): O80 - ENCOUNTER FOR FULL-TERM UNCOMPLICATED DELIVERY Status: Acute Current Visit: Yes - Problem List Review Problem List Initiated/Reviewed/Updated: Yes - My Orders Last 24 Hours: My Active Orders 08/13/17 12:51 OB Check [OM.PC] Click to Edit 08/13/17 13:19 CULTURE GROUP B STREP [RM] Routine 08/13/17 13:48 Acetaminophen [Tylenol] 650 mg PO Q4H PRN Ondansetron [Zofran ODT] 4 mg PO Q4H PRN DVT/VTE Prophylaxis Reflex [OM.PC] Routine Resuscitation Status Routine 08/13/17 13:49 Communication Order [RC] ASDIRECTED Communication Order [RC] ASDIRECTED Communication Order [RC] ASDIRECTED Notify Provider [RC] PRN Notify Provider [RC] PRN Notify Provider [RC] STAT Vital Signs [RC] PER UNIT ROUTINE 08/13/17 13:50 Antiembolic Devices [RC] .Routine VTE/DVT Education [RC] Click to Edit 08/13/17 14:30 Oxytocin/Normal Saline [Pitocin in NS 20 Units/1,000 ML] 20 unit in 1,000 ml IV TITRATE 08/13/17 18:00 Penicillin G Potassium [Pfizerpen] 2.5 millunits Sodium Chloride 0.9% [Normal Saline] 50 ml IV Q4H 08/13/17 Dinner Regular Diet [DIET] 08/14/17 02:04 Local Anesthetic Infusion Pump [RC] ASDIRECTED PCEA Epidural [RC] ASDIRECTED Epidural Catheter Management [OM.PC] Routine 08/14/17 02:15 Lactated Ringers [Ringers, Lactated] 1,000 ml IV BOLUS 08/14/17 06:12 Calcium Carbonate [Tums] 1,000 mg PO Q2H PRN 08/14/17 06:30 Patient Status [ADT] Routine Up ad Thelma [RC] ASDIRECTED Vital Signs [RC] PFP Docusate Sodium [Colace] 100 mg PO BID PRN Ibuprofen [Motrin] 600 mg PO Q6H PRN Measles, Mumps & Rubella [M-M-R II Vaccine] 0.5 ml SUBCUT .ONCE ONE Assess Uterine Involution [WOMSER] Per Unit Routine 08/14/17 06:31 Ice Therapy [OM.PC] Per Unit Routine Perineal Care [OM.PC] Per Unit Routine Peripheral IV Discontinue [OM.PC] Routine Sitz Bath [OM.PC] Per Unit Routine 08/14/17 06:45 Oxytocin/Normal Saline [Pitocin in NS 20 Units/1,000 ML] 1,000 ml IV TITRATE 08/15/17 05:11 CBC WITH AUTO DIFF [HEME] AM - Assessment Assessment:: 22 year old 36 3/7 without complication Labial tear repaired PPROM, induction with delivery Unknown GBS, treated HGB 10.6 Rubella nonimmune, MMR ordered ABO O pos - Plan Plan:: 08/13/17 22 year old g1 who is 36 2/7 weeks with PPROM clear fluid pitocin induction GBS swab done but prophylaxis started Limit vaginal exam and did explain this to the patient and family. Needs Rubella after delivery of baby. pain management per request of patient up and about this evening Plan for vaginal delivery. 08/14/17 Routine cares 48 hour stay due to unknown GBS Support
[2017-08-14] MEDS ORDERED: Acetaminophen 325 MG Tab, 50 Tab Bulk Bottle PO PRN (09:34)
[2017-08-14] MEDS ORDERED: Ibuprofen 200 MG Tab, 24 Tab Bulk Bottle PO PRN (09:35)
[2017-08-15] MEDS ORDERED: Docusate Sodium 100 MG Cap PO PRN (08:22)
--- NOTE | 2017-08-15 08:27 | PCM.PNPP ---
- General Info Date of Service: 08/15/17 Admission Dx/Problem (Free Text): Patient Status Order with Admit Dx/Problem 08/13/17 13:49 Patient Status [ADT] Routine Admission Diagnosis/Problem Admission Diagnosis/Problem and not yet delivered Functional Status: Reports: Pain Controlled - Review of Systems General: Reports: No Symptoms HEENT: Reports: No Symptoms Pulmonary: Reports: No Symptoms Cardiovascular: Reports: No Symptoms Gastrointestinal: Reports: No Symptoms Genitourinary: Reports: No Symptoms Musculoskeletal: Reports: No Symptoms Skin: Reports: No Symptoms Neurological: Reports: No Symptoms Psychiatric: Reports: No Symptoms - General Info Date of Service: 08/15/17 - Patient Data Vital Signs - Most Recent: Last Vital Signs Temp 36.1 C 08/15/17 07:00 Pulse 76 08/15/17 07:00 Resp 18 08/15/17 07:00 BP 100/56 L 08/15/17 07:00 Pulse Ox 100 08/15/17 07:00 Weight - Most Recent: 67.436 kg I&O - Last 24 Hours: Intake & Output 08/14/17 08/15/17 08/15/17 22:59 06:59 14:59 Intake Total 600 600 Balance 600 600 Lab Results - Last 24 Hours: Laboratory Results - last 24 hr 08/15/17 Range/Units 05:11 WBC 17.4 H (4.5-11.0) K/uL RBC 3.40 (3.30-5.50) M/uL Hgb 9.5 L (12.0-15.0) g/dL Hct 30.2 L (36.0-48.0) % MCV 89 (80-98) fL MCH 28 (27-31) pg MCHC 32 (32-36) % Plt Count 286 (150-400) K/uL Neut % (Auto) 62 (36-66) % Lymph % (Auto) 28 (24-44) % [place] % (Auto) 8 H (2-6) % Eos % (Auto) 1 L (2-4) % Baso % (Auto) 0 (0-1) % Micro Results - Last 24 Hours: Microbiology 08/13/17 13:19 Group B Streptococcus Culture - Preliminary Vaginal/Rectal NEGATIVE STREP GROUP B Med Orders - Current: Current Medications Acetaminophen (Tylenol Bulk Bottle) 650 mg PO Q4H PRN PRN Reason: Pain/Fever Calcium Carbonate/Glycine (Tums) 1,000 mg PO Q2H PRN PRN Reason: Indigestion Diphenhydramine HCl (Benadryl) 25 mg IVPUSH Q6H PRN PRN Reason: ITCHING Docusate Sodium (Colace) 100 mg PO BID PRN PRN Reason: Constipation Docusate Sodium (Colace) 100 mg PO BID PRN PRN Reason: Constipation Ephedrine Sulfate (Ephedrine Sulfate) 5 - 10 mg IVPUSH ASDIRECTED PRN PRN Reason: IF SYSTOLIC BP LESS THAN 100 Oxytocin/Sodium Chloride (Pitocin In Ns 20 Units/1,000 Ml) 20 unit in 1,000 mls @ 9 mls/hr IV TITRATE MINO; 3 MUNITS/MIN PRN Reason: Protocol Last Titration: 08/14/17 02:43 Dose: 22 munits/min, 66 mls/hr Lactated Ringer's (Ringers, Lactated) 1,000 mls @ 999 mls/hr IV BOLUS MINO Last Admin: 08/14/17 01:30 Dose: 999 mls/hr Ropivacaine (Naropin 0.2%) 100 mls @ 10 mls/hr EPIDUR ASDIRECTED MINO Oxytocin/Sodium Chloride (Pitocin In Ns 20 Units/1,000 Ml) 20 unit in 1,000 mls @ 6 mls/hr IV TITRATE MINO; 2 MUNITS/MIN PRN Reason: Protocol Ibuprofen (Motrin Bulk Bottle) 600 mg PO Q6H PRN PRN Reason: Pain (moderate 4-6) Naloxone HCl (Narcan) 0.1 mg IVPUSH Q5M PRN PRN Reason: IF RESP RATE LESS THAN 6 Ondansetron HCl (Zofran Odt) 4 mg PO Q4H PRN PRN Reason: Nausea/Vomiting Prenat Multivit/[place]/Iron/Folic Ac ( Plus Iron) 1 each PO DAILY MINO Discontinued Medications Acetaminophen (Tylenol) 650 mg PO Q4H PRN PRN Reason: mild pain and fever Calcium Carbonate/Glycine (Tums) 1,000 mg PO ONETIME ONE Stop: 08/14/17 00:44 Last Admin: 08/14/17 00:55 Dose: 1,000 mg Calcium Carbonate/Glycine (Tums) Confirm Administered Dose 1,000 mg .ROUTE .[facility]- MED ONE Stop: 08/14/17 00:54 Last Admin: 08/14/17 01:04 Dose: Not Given Ephedrine Sulfate (Ephedrine Sulfate) Confirm Administered Dose 50 mg .ROUTE .STK-MED ONE Stop: 08/14/17 02:14 Last Admin: 08/14/17 04:59 Dose: Not Given Fentanyl (Sublimaze) 100 mcg IVPUSH ONETIME ONE Stop: 08/13/17 14:16 Last Admin: 08/13/17 14:31 Dose: Not Given Oxytocin/Sodium Chloride (Pitocin In Ns 20 Units/1,000 Ml) 20 unit in 1,000 mls @ 999 mls/hr IV ONETIME ONE PRN Reason: Protocol Stop: 08/13/17 14:53 Last Titration: 08/13/17 15:01 Dose: 999 mls/hr Penicillin G Potassium 5 (millunits/ Sodium Chloride) 50 mls @ 100 mls/hr IV ONETIME ONE Stop: 08/13/17 14:44 Last Admin: 08/13/17 14:02 Dose: 100 mls/hr Penicillin G Potassium 2.5 (millunits/ Sodium Chloride) 50 mls @ 100 mls/hr IV Q4H MINO Last Admin: 08/14/17 06:55 Dose: Not Given Ropivacaine (Naropin 0.2%) Confirm Administered Dose 100 mls @ as directed .ROUTE .STK-MED ONE Stop: 08/14/17 03:14 Ibuprofen (Motrin) 600 mg PO Q6H PRN PRN Reason: mild pain or fever Measles/Mumps/Rubella Vaccine Live (M-M-R Ii Vaccine) 0.5 ml SUBCUT .ONCE ONE Stop: 08/14/17 06:31 - Infant Interaction Infant Disposition, : [place] at Bedside Interaction: Holding Infant Feeding: Breastfed ; Nursed Well Support Person: Mother, Friend - Recovery Exam Fundal Tone: Firm Fundal Level: 1 Fingerbreadths Above Umbilicus Fundal Placement: Midline Lochia Amount: Small Lochia Color: Rubra/Red Perineum Description: Intact, Minimal Bruising/Swelling Episiotomy/Laceration: Approximated (minimal swelling on exam today) Bladder Status: Voiding Urinary Elimination: Voided - Exam General: Alert, Oriented HEENT: Pupils Equal Neck: Supple Lungs: Clear to Auscultation, Normal Respiratory Effort Cardiovascular: Regular Rate, Regular Rhythm GI/Abdominal Exam: Normal Bowel Sounds, Soft, Non-Tender, No Organomegaly, No Distention, No Abnormal Bruit, No Mass, Pelvis Stable Extremities: Normal Inspection, Normal Range of Motion, Non-Tender, No Pedal Edema, Normal Capillary Refill Skin: Warm, Dry, Intact Wound/Incisions: Healing Well Neurological: No New Focal Deficit Psy/Mental Status: Alert, Normal Affect, Normal Mood - Problem List & Annotations (1) Normal vaginal delivery SNOMED Code(s): 54998826 Code(s): O80 - ENCOUNTER FOR FULL-TERM UNCOMPLICATED DELIVERY Status: Acute Current Visit: Yes (2) Perineal laceration involving labia SNOMED Code(s): 12944159 Code(s): S31.41XA - LACERATION W/O FOREIGN BODY OF VAGINA AND VULVA, INIT ENCNTR Status: Acute Current Visit: Yes Qualifiers: Encounter type: subsequent encounter Qualified Code(s): S31.41XD - Laceration without foreign body of vagina and vulva, subsequent encounter (3) Normal labor and delivery SNOMED Code(s): 27772212 Code(s): O80 - ENCOUNTER FOR FULL-TERM UNCOMPLICATED DELIVERY Status: Acute Current Visit: Yes (4) SNOMED Code(s): 06092888 Code(s): Z34.90 - ENCNTR FOR SUPRVSN OF NORMAL , UNSP, UNSP TRIMESTER Status: Acute Current Visit: Yes Qualifiers: Weeks of gestation: 36 weeks Qualified Code(s): Z3A.36 - 36 weeks gestation of (5) infant, 2,500 or more grams SNOMED Code(s): 617258034 Code(s): P07.30 - , UNSPECIFIED WEEKS OF GESTATION Status: Acute Current Visit: Yes - Problem List Review Problem List Initiated/Reviewed/Updated: Yes - My Orders Last 24 Hours: My Active Orders 08/15/17 08:22 Docusate Sodium [Colace] 100 mg PO BID PRN 08/15/17 09:00 Vit with Ca/FA/Iron [ Plus Iron] 1 each PO DAILY - Assessment Assessment:: 22 year old 36 3/7 without complication Labial tear repaired PPROM, induction with delivery Unknown GBS, treated HGB 10.6 Rubella nonimmune, MMR ordered ABO O pos 08/15/2017 of 36 2/7 female day one well Fundus firm and bleeding decreasing Hgb-9.5 down from 10.6, restarted vitamin Minimal swelling of labial laceration - Plan Plan:: 08/13/17 22 year old g1 who is 36 2/7 weeks with PPROM clear fluid pitocin induction GBS swab done but prophylaxis started Limit vaginal exam and did explain this to the patient and family. Needs Rubella after delivery of baby. pain management per request of patient up and about this evening Plan for vaginal delivery. 08/14/17 Routine cares 48 hour stay due to unknown GBS Support 08/15/2017 Continue Routine Cares Continue to encourage and support MMR vaccine needed Restart vitamins Plan discharge tomorrow at 48 hrs since GBS status unknown
[2017-08-15] MEDS: Prenatal Multivitamin with Calcium/Folic Acid/Iron Tab PO SCH (09:13)
[2017-08-15] MEDS ORDERED: Lanolin 100% Cream 40 GM Tube TOP PRN (09:45)
[2017-08-15] MEDS ORDERED: Measles, Mumps & Rubella Vaccine 0.5 ML SDV SUBCUT ONE (12:30)
[2017-08-16 08:15] VITALS: BP 121/61
--- NOTE | 2017-08-16 08:23 | PCM.PNPP ---
- General Info Date of Service: 08/16/17 Admission Dx/Problem (Free Text): Patient Status Order with Admit Dx/Problem 08/13/17 13:49 Patient Status [ADT] Routine Admission Diagnosis/Problem Admission Diagnosis/Problem and not yet delivered Functional Status: Reports: Pain Controlled - Review of Systems General: Reports: No Symptoms HEENT: Reports: No Symptoms Pulmonary: Reports: No Symptoms Cardiovascular: Reports: No Symptoms Gastrointestinal: Reports: No Symptoms Genitourinary: Reports: No Symptoms Musculoskeletal: Reports: No Symptoms Skin: Reports: No Symptoms Neurological: Reports: No Symptoms Psychiatric: Reports: No Symptoms - General Info Date of Service: 08/16/17 - Patient Data Vital Signs - Most Recent: Last Vital Signs Temp 37.1 C 08/16/17 08:14 Pulse 59 L 08/15/17 23:46 Resp 15 08/16/17 08:14 BP 121/61 08/16/17 08:14 Pulse Ox 99 08/16/17 08:14 Weight - Most Recent: 67.436 kg I&O - Last 24 Hours: Intake & Output 08/15/17 08/16/17 08/16/17 22:59 06:59 14:59 Intake Total 236 Balance 236 Micro Results - Last 24 Hours: Microbiology 08/13/17 13:19 Group B Streptococcus Culture - Preliminary Vaginal/Rectal NEGATIVE STREP GROUP B Med Orders - Current: Current Medications Acetaminophen (Tylenol Bulk Bottle) 650 mg PO Q4H PRN PRN Reason: Pain/Fever Calcium Carbonate/Glycine (Tums) 1,000 mg PO Q2H PRN PRN Reason: Indigestion Diphenhydramine HCl (Benadryl) 25 mg IVPUSH Q6H PRN PRN Reason: ITCHING Docusate Sodium (Colace) 100 mg PO BID PRN PRN Reason: Constipation Last Admin: 08/15/17 09:13 Dose: 100 mg Emollient Ointment (Lansinoh Hpa) 0 gm TOP ASDIRECTED PRN PRN Reason: sore nipples Last Admin: 08/15/17 10:52 Dose: 1 applic Ibuprofen (Motrin Bulk Bottle) 600 mg PO Q6H PRN PRN Reason: Pain (moderate 4-6) Ondansetron HCl (Zofran Odt) 4 mg PO Q4H PRN PRN Reason: Nausea/Vomiting Prenat Multivit/[place]/Iron/Folic Ac ( Plus Iron) 1 each PO DAILY MINO Last Admin: 08/15/17 09:13 Dose: 1 each Discontinued Medications Acetaminophen (Tylenol) 650 mg PO Q4H PRN PRN Reason: mild pain and fever Calcium Carbonate/Glycine (Tums) 1,000 mg PO ONETIME ONE Stop: 08/14/17 00:44 Last Admin: 08/14/17 00:55 Dose: 1,000 mg Calcium Carbonate/Glycine (Tums) Confirm Administered Dose 1,000 mg .ROUTE .STK- MED ONE Stop: 08/14/17 00:54 Last Admin: 08/14/17 01:04 Dose: Not Given Ephedrine Sulfate (Ephedrine Sulfate) Confirm Administered Dose 50 mg .ROUTE .STK-MED ONE Stop: 08/14/17 02:14 Last Admin: 08/14/17 04:59 Dose: Not Given Ephedrine Sulfate (Ephedrine Sulfate) 5 - 10 mg IVPUSH ASDIRECTED PRN PRN Reason: IF SYSTOLIC BP LESS THAN 100 Fentanyl (Sublimaze) 100 mcg IVPUSH ONETIME ONE Stop: 08/13/17 14:16 Last Admin: 08/13/17 14:31 Dose: Not Given Oxytocin/Sodium Chloride (Pitocin In Ns 20 Units/1,000 Ml) 20 unit in 1,000 mls @ 999 mls/hr IV ONETIME ONE PRN Reason: Protocol Stop: 08/13/17 14:53 Last Titration: 08/13/17 15:01 Dose: 999 mls/hr Penicillin G Potassium 5 (millunits/ Sodium Chloride) 50 mls @ 100 mls/hr IV ONETIME ONE Stop: 08/13/17 14:44 Last Admin: 08/13/17 14:02 Dose: 100 mls/hr Penicillin G Potassium 2.5 (millunits/ Sodium Chloride) 50 mls @ 100 mls/hr IV Q4H MINO Last Admin: 08/14/17 06:55 Dose: Not Given Oxytocin/Sodium Chloride (Pitocin In Ns 20 Units/1,000 Ml) 20 unit in 1,000 mls @ 9 mls/hr IV TITRATE MINO; 3 MUNITS/MIN PRN Reason: Protocol Last Titration: 08/14/17 02:43 Dose: 22 munits/min, 66 mls/hr Lactated Ringer's (Ringers, Lactated) 1,000 mls @ 999 mls/hr IV BOLUS MINO Last Admin: 08/14/17 01:30 Dose: 999 mls/hr Ropivacaine (Naropin 0.2%) Confirm Administered Dose 100 mls @ as directed .ROUTE .STK-MED ONE Stop: 08/14/17 03:14 Ropivacaine (Naropin 0.2%) 100 mls @ 10 mls/hr EPIDUR ASDIRECTED MINO Oxytocin/Sodium Chloride (Pitocin In Ns 20 Units/1,000 Ml) 20 unit in 1,000 mls @ 6 mls/hr IV TITRATE MINO; 2 MUNITS/MIN PRN Reason: Protocol Ibuprofen (Motrin) 600 mg PO Q6H PRN PRN Reason: mild pain or fever Measles/Mumps/Rubella Vaccine Live (M-M-R Ii Vaccine) 0.5 ml SUBCUT .ONCE ONE Stop: 08/15/17 12:31 Last Admin: 08/15/17 12:58 Dose: 0.5 ml Naloxone HCl (Narcan) 0.1 mg IVPUSH Q5M PRN PRN Reason: IF RESP RATE LESS THAN 6 - Infant Interaction Disposition, : at Bedside Interaction: Holding Infant Infant Feeding: Breastfed ; Nursed Well Support Person: Mother, Friend - Recovery Exam Fundal Tone: Firm Fundal Level: 1 Fingerbreadths Below Umbilicus Fundal Placement: Midline Lochia Amount: Scant Lochia Color: Serosa/[place] Perineum Description: Intact, Minimal Bruising/Swelling Episiotomy/Laceration: Approximated Bladder Status: Voiding Urinary Elimination: Voided - Exam General: Alert, Oriented HEENT: Pupils Equal Neck: Supple Lungs: Clear to Auscultation, Normal Respiratory Effort Cardiovascular: Regular Rate, Regular Rhythm GI/Abdominal Exam: Normal Bowel Sounds, Soft, Non-Tender, No Organomegaly, No Distention, No Abnormal Bruit, No Mass, Pelvis Stable Extremities: Normal Inspection, Normal Range of Motion, Non-Tender, No Pedal Edema, Normal Capillary Refill Skin: Warm, Dry, Intact Wound/Incisions: Healing Well Neurological: No New Focal Deficit Psy/Mental Status: Alert, Normal Affect, Normal Mood - Problem List & Annotations (1) Normal vaginal delivery SNOMED Code(s): 47531741 Code(s): O80 - ENCOUNTER FOR FULL-TERM UNCOMPLICATED DELIVERY Status: Acute Current Visit: Yes (2) Perineal laceration involving labia SNOMED Code(s): 58520428 Code(s): S31.41XA - LACERATION W/O FOREIGN BODY OF VAGINA AND VULVA, INIT ENCNTR Status: Acute Current Visit: Yes Qualifiers: Encounter type: subsequent encounter Qualified Code(s): S31.41XD - Laceration without foreign body of vagina and vulva, subsequent encounter (3) Normal labor and delivery SNOMED Code(s): 56296083 Code(s): O80 - ENCOUNTER FOR FULL-TERM UNCOMPLICATED DELIVERY Status: Acute Current Visit: Yes (4) SNOMED Code(s): 39563045 Code(s): Z34.90 - ENCNTR FOR SUPRVSN OF NORMAL , UNSP, UNSP TRIMESTER Status: Acute Current Visit: Yes Qualifiers: Weeks of gestation: 36 weeks Qualified Code(s): Z3A.36 - 36 weeks gestation of (5) , 2,500 or more grams SNOMED Code(s): 833836127 Code(s): P07.30 - , UNSPECIFIED WEEKS OF GESTATION Status: Acute Current Visit: Yes - Problem List Review Problem List Initiated/Reviewed/Updated: Yes - My Orders Last 24 Hours: My Active Orders 08/15/17 09:00 Vit with Ca/FA/Iron [ Plus Iron] 1 each PO DAILY 08/15/17 09:45 Lanolin [Lansinoh HPA] 0 gm TOP ASDIRECTED PRN - Assessment Assessment:: 22 year old 36 3/7 without complication Labial tear repaired PPROM, induction with delivery Unknown GBS, treated infant HGB 10.6 Rubella nonimmune, MMR ordered ABO O pos 08/15/2017 of 36 2/7 female day one well Fundus firm and bleeding decreasing Hgb-9.5 down from 10.6, restarted vitamin Minimal swelling of labial laceration 08/16/2017 Day Two well Fundus Firm and bleeding decreasing - Plan Plan:: 08/13/17 22 year old g1 who is 36 2/7 weeks with PPROM clear fluid pitocin induction GBS swab done but prophylaxis started Limit vaginal exam and did explain this to the patient and family. Needs Rubella after delivery of baby. pain management per request of patient up and about this evening Plan for vaginal delivery. 08/14/17 Routine cares 48 hour stay due to unknown GBS Support 08/15/2017 Continue Routine Cares Continue to encourage and support MMR vaccine needed Restart vitamins Plan discharge tomorrow at 48 hrs since GBS status unknown 08/16/2017 Continue Routine Cares Continue to Encourage and Support Discharge home today To [facility] in 6 weeks for visit at clinic
[2017-08-16] MEDS: Prenatal Multivitamin with Calcium/Folic Acid/Iron Tab PO SCH (12:51)
== END 2017-08-16 13:15 | disposition home or self-care (01) | DRG 775 ==
LOC: JP.OBCHECK 12:43 → JP.OB 13:33 → JP.MS 08-14 05:42 → OBSVTOIN 08-14 05:42 → JP.MS 08-14 10:11
PROVIDERS: ADMIT Nurse Practitioner Family; ATTEND Nurse Practitioner Family
PROC: 10E0XZZ Delivery of Products of Conception, External Approach (ICD-10-PCS; principal; 2017-08-14)
PROC: 0HQ9XZZ Repair Perineum Skin, External Approach (ICD-10-PCS; 2017-08-14)
PROC: 3E033VJ Introduction of Other Hormone into Peripheral Vein, Percutaneous Approach (ICD-10-PCS; 2017-08-14)
PROC: 00HU33Z Insertion of Infusion Device into Spinal Canal, Percutaneous Approach (ICD-10-PCS; 2017-08-14)
DX: O60.14X0 Preterm labor third trimester with preterm delivery third trimester, not applicable or unspecified (principal); O42.913 Preterm premature rupture of membranes, unspecified as to length of time between rupture and onset of labor, third trimester; O70.0 First degree perineal laceration during delivery; Z3A.36 36 weeks gestation of pregnancy; Z37.0 Single live birth; H54.7 Unspecified visual loss; Z87.440 Personal history of urinary (tract) infections; Z87.891 Personal history of nicotine dependence; Z91.5 Personal history of self-harm; Z87.898 Personal history of other specified conditions
CPT/HCPCS: 36415; 59409; 80305; 81001; 84112; 85025; 87081; 90707; 99211; A9270-GY; J2540; J2590; J2795; J7050; J7120

== ENCOUNTER 2021-06-02 20:23 | Inpatient (IN) | payer MEDICAID ==
[~2021-06-02 20:23] MED LIST: Ropivacaine 200 MG in Premix Bag 1 BAG EPIDUR SCH
[2021-06-02] MEDS ORDERED: Calcium Carbonate 500 MG Tab.Chew PO PRN (22:05)
[2021-06-02] MEDS ORDERED: Sodium Chloride 0.9% 10 ML Syringe FLUSH PRN (22:05)
[2021-06-02] MEDS ORDERED: Ondansetron 4 MG/2 ML SDV IV PRN (22:05)
[2021-06-02] MEDS ORDERED: Lactated Ringers 1,000 ML IV SCH (22:15)
--- NOTE | 2021-06-02 22:16 | PCM.LDHP ---
L&D History of Present Illness - General Date of Service: 06/02/21 Admit Problem/Dx: Patient Status Order with Admit Dx/Problem 06/02/21 22:05 Patient Status [ADT] Routine Admission Diagnosis/Problem Admission Diagnosis/Problem Active labor Source of Information: Patient History Limitations: Reports: No Limitations - History of Present Illness Introduction:: 06/02/21 Sravani is a 26 yo here at 39 6/7 weeks in active labor. SONY 06/10/21. Contractions have been intermittent since this morning, some blood show this morning. Contractions became strong around 1600. Membranes are intact. GBS is negative, O positive blood type, rubella immune, RPR/hep B/C/RPR all NR. She has had an uncomplicated . First baby was an uncomplicated vaginal delivery at 36 weeks. Timing/Duration: Reports: minutes: (3-5) Location, : Reports: Abdomen Quality: Reports: Sharp Severity: Moderate Improves with: Reports: None Worsens with: Reports: None Associated Symptoms: Denies: vaginal bleeding, vaginal fluid - Related Data Allergies/Adverse Reactions: Allergies Allergy/AdvReac Type Severity Reaction Status Date / Time No Known Allergies Allergy Verified 08/05/17 14:04 Home Medications: Home Meds Ondansetron [Zofran ODT] 4 mg PO Q8HR PRN 08/08/17 [History] Docusate Sodium [Colace] 100 mg PO BID PRN #60 cap 08/16/17 [Rx] Past Medical History HEENT History: Reports: Impaired Vision Cardiovascular History: Reports: None Respiratory History: Reports: None Other Respiratory History: seasonal allergies Gastrointestinal History: Reports: None Genitourinary History: Reports: UTI, Recurrent 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: , Other (See Below) : 3 Para: 1 LMP (Approximate): Other OB/BYN History: Ovarian cysts Musculoskeletal History: Reports: None Neurological History: Reports: Migraines Psychiatric History: Reports: Depression, Suicide Attempt Endocrine/Metabolic History: Reports: None Hematologic History: Reports: None Immunologic History: Reports: None Oncologic (Cancer) History: Reports: None Dermatologic History: Reports: None - Infectious Disease History Infectious Disease History: Reports: Chicken Pox - Past Surgical History Head Surgeries/Procedures: Reports: None HEENT Surgical History: Reports: Other (See Below) Other HEENT Surgeries/Procedures: surgical repair of blocked tear duct Cardiovascular Surgical History: Reports: None Respiratory Surgical History: Reports: None GI Surgical History: Reports: None Female Surgical History: Reports: None Endocrine Surgical History: Reports: None Neurological Surgical History: Reports: None Musculoskeletal Surgical History: Reports: None Oncologic Surgical History: Reports: None Dermatological Surgical History: Reports: None Social & Family History - Family History Other Oncologic Family History: dad had cancer but not sure what kind - Tobacco Use Tobacco Use Status *Q: Current Every Day Tobacco User Years of Tobacco use: 7 Packs/Tins Daily: 0.5 - Caffeine Use Caffeine Use: Reports: Coffee Other Caffeine Use: 1 per day - Recreational Drug Use Recreational Drug Use: No H&P Review of Systems - Review of Systems: Review Of Systems: See Below General: Reports: No Symptoms HEENT: Reports: No Symptoms Pulmonary: Reports: No Symptoms Cardiovascular: Reports: No Symptoms Gastrointestinal: Reports: No Symptoms Genitourinary: Reports: No Symptoms Musculoskeletal: Reports: No Symptoms Skin: Reports: No Symptoms Psychiatric: Reports: No Symptoms Neurological: Reports: No Symptoms Hematologic/Lymphatic: Reports: No Symptoms Immunologic: Reports: No Symptoms L&D Exam - Exam Exam: See Below - OB Specific Contraction Duration (sec): 60-90 Contraction Intensity: Moderate to Strong Movement: Active Heart Tones: Present Heart Tones per Min: 120 Heart Rate (FHR) Variability: Moderate (6-25 bpm) Presentation: Vertex Estimated Weight: 7 lb - Exam General: Alert, Oriented HEENT: PERRLA, Pupils Equal, Pupils Reactive Neck: Supple, Trachea Midline Lungs: Clear to Auscultation, Normal Respiratory Effort Cardiovascular: Regular Rate, Regular Rhythm GI/Abdominal Exam: Normal Bowel Sounds, Soft, Pelvis Stable Rectal Exam: Normal Exam Genitourinary: Normal external exam, Cervical dilitation, Enlarged uterus Back Exam: Normal Inspection, Full Range of Motion Extremities: Normal Inspection, No Pedal Edema Skin: Warm, Dry, Intact Neurological: Cranial Nerves Intact Psychiatric: Alert, Normal Affect, Normal Mood - Problem List (1) Active labor at term SNOMED Code(s): 32567181 ICD Code: [id number] - Status: Acute Current Visit: Yes Problem List Initiated/Reviewed/Updated: Yes Orders Last 24hrs: Active Orders 24 hr Category Date Time Status Patient Status [ADT] Routine ADT 06/02/21 22:05 Ordered Communication Order [RC] ASDIRECTED Care 06/02/21 22:05 Ordered Heart Tones [RC] PER UNIT ROUTINE Care 06/02/21 22:05 Ordered Notify Provider Vital Signs [RC] PRN Care 06/02/21 22:06 Ordered Notify Provider [RC] PRN Care 06/02/21 22:05 Ordered OB Check [OM.PC] Click to Edit Care 06/02/21 20:55 Ordered Up ad Thelma [RC] ASDIRECTED Care 06/02/21 22:05 Ordered VTE/DVT Education [RC] Click to Edit Care 06/02/21 22:06 Ordered Vital Signs [RC] PER UNIT ROUTINE Care 06/02/21 22:05 Ordered Regular Diet [DIET] Diet 06/02/21 Breakfast Ordered CBC WITH AUTO DIFF [HEME] Routine Lab 06/02/21 22:05 Ordered COVID-19/FLU A+B/RSV [MOLEC] Stat Lab 06/02/21 22:07 Ordered DRUG SCREEN, URINE [URCHEM] Routine Lab 06/02/21 22:05 Ordered UA W/MICROSCOPIC [URIN] Routine Lab 06/02/21 20:56 Ordered Calcium Carbonate [Tums] Med 06/02/21 22:05 Ordered 1,000 mg PO Q2HR PRN Lactated Ringers @ 125 MLS/HR(1000ml) Med 06/02/21 22:15 Ordered Lactated Ringers [Ringers, Lactated] 1,000 ml IV ASDIRECTED Ondansetron [Zofran] Med 06/02/21 22:05 Ordered 4 mg IV Q4H PRN Sodium Chloride 0.9% [Saline Flush] Med 06/02/21 22:05 Ordered 10 ml FLUSH ASDIRECTED PRN DVT/VTE Prophylaxis Reflex [OM.PC] Routine Oth 06/02/21 22:05 Ordered Saline Lock Insert [OM.PC] Routine Oth 06/02/21 22:05 Ordered Resuscitation Status Routine Resus Stat 06/02/21 22:05 Ordered Assessment/Plan Comment:: 06/02/21 Assessment: at 39 6/7 weeks in active labor at term, spontaneous Membranes intact GBS negative O pos blood type Category 1 tracing Plan: Monitor labor progression Wants epidural Anticipate
[2021-06-02 23:04] LABS: CORONAVIRUS COVID-19 NAA NEGATIVE (NEGATIVE)
[2021-06-02] MEDS ORDERED: Naloxone 0.4 MG/ML SDV IVPUSH PRN (23:23)
[2021-06-02] MEDS ORDERED: diphenhydrAMINE 50 MG/ML SDV IVPUSH PRN ×2 (23:23)
[2021-06-02] MEDS ORDERED: ePHEDrine 50 MG/ML SDV IVPUSH PRN (23:23)
[2021-06-02] MEDS: Sodium Chloride 0.9% 1,000 ML IV ONE (23:32)
[2021-06-03] MEDS ORDERED: fentaNYL 100 MCG/2 ML SDV ONE (00:32)
[2021-06-03] MEDS ORDERED: Ropivacaine 100 ML ONE (00:33)
--- NOTE | 2021-06-03 00:54 | PCM.PNLD ---
Labor Progress Note - VS & Meds Active Medications: Current Medications Calcium Carbonate/Glycine (Calcium Carbonate 500 Mg Tab.Chew) 1,000 mg PO Q2H PRN PRN Reason: Indigestion Diphenhydramine HCl (Diphenhydramine 50 Mg/Ml Sdv) 25 mg IVPUSH Q6H PRN PRN Reason: Itching Diphenhydramine HCl (Diphenhydramine 50 Mg/Ml Sdv) 50 mg IVPUSH Q6H PRN PRN Reason: Itching Ephedrine Sulfate (Ephedrine 50 Mg/Ml Sdv) 10 mg IVPUSH ASDIRECTED PRN PRN Reason: Hypotension Lactated Ringer's (Ringers, Lactated) 1,000 mls @ 125 mls/hr IV ASDIRECTED MINO Last Admin: 06/03/21 00:17 Dose: 125 mls/hr Documented by: Oxytocin/Sodium Chloride (Pitocin In Ns 20 Units/1,000 Ml) 20 unit in 1,000 mls @ 500 mls/hr IV TITRATE MINO; Protocol Naloxone HCl (Naloxone 0.4 Mg/Ml Sdv) 0.1 mg IVPUSH ASDIRECTED PRN PRN Reason: Oversedation Ondansetron HCl (Ondansetron 4 Mg/2 Ml Sdv) 4 mg IV Q4H PRN PRN Reason: Nausea/Vomiting Sodium Chloride (Sodium Chloride 0.9% 10 Ml Syringe) 10 ml FLUSH ASDIRECTED PRN PRN Reason: Keep Vein Open Discontinued Medications Fentanyl (Fentanyl 100 Mcg/2 Ml Sdv) Confirm Administered Dose 100 mcg .ROUTE .STK-MED ONE Stop: 06/03/21 00:33 Sodium Chloride (Normal Saline) 1,000 mls @ 999 mls/hr IV .BOLUS ONE Stop: 06/03/21 00:20 Last Admin: 06/02/21 23:32 Dose: 999 mls/hr Documented by: Ropivacaine (Naropin 0.2%) Confirm Administered Dose 100 mls @ as directed .ROUTE .STK-MED ONE Stop: 06/03/21 00:34 - Uterine Contractions Contraction Duration (sec): 60-90 Contraction Intensity: Strong Uterine Resting Tone: Soft - Monitoring Monitor Mode: External Ultrasound Heart Rate (FHR) Baseline: 110 Heart Rate (FHR) Variability: Moderate (6-25 bpm) Accelerations: Present, 15x15 Decelerations: None Strip Review: Category I - Vaginal Exam Dilation (cm): 7 Effacement (Percent): 100 Station: 0 Cervical Position: Anterior Sterile Vaginal Exam Performed By: Tamy Rocha - Labor Progress (Free Text) Labor Progress: 06/03/21 Patient used nitrous oxide for a short amount of time and then requested an epidural. Epidural is in and her pain is gone. She is rotating on the peanut ball. Baby's baseline has been 110 since epidural placement and was prior to as well. Still category 1 tracing. AROM with large amount of clear fluid complete. SVE 7/100/0.
--- NOTE | 2021-06-03 01:19 | PROC ---
DATE OF PROCEDURE: 06/03/2021 SURGEON: Palomo Ashford CRNA This 26-year-old is in labor with her 2nd . She had a pleasant experience with epidural on the first one and has requested an epidural will be placed. We discussed the risks and benefits, and she has agreed to the procedure and has signed informed consent. She was placed in a sitting position. Her back was prepped with Betadine x3. A 3 mL dose of 1% Xylocaine was given approximately L3-4 and the 17-gauge Tuohy needle was then placed into the epidural space using a loss of resistance technique. She was given a test dose of 5 mL of 1.5% Xylocaine with epinephrine and 100 mcg of fentanyl. The test dose was acceptable. An epidural catheter was then threaded 2 to 3 cm into the epidural space and the needle removed over the catheter. The catheter was brought over her right shoulder and taped in place. She was then given 15 mL bolus of 0.2% ropivacaine and she was placed on a ropivacaine infusion 0.2% at 12 mL/h, which can be titrated accordingly. The patient suffered no paresthesia. The epidural will be removed by the OB staff and they will contact anesthesia should they need further assistance. NAME OF PROCEDURE: Labor epidural. Palomo Ashford CRNA /[id number]
[2021-06-03] MEDS ORDERED: Docusate Sodium 100 MG Cap PO PRN (03:51)
[2021-06-03] MEDS ORDERED: Benzocaine 20% Top Spray 56 GM Bottle TOP PRN (03:51)
[2021-06-03] MEDS ORDERED: Lanolin 100% Cream 40 GM Tube TOP PRN (03:51)
[2021-06-03] MEDS ORDERED: Acetaminophen 325 MG Tab, 50 Tab Bulk Bottle PO PRN (03:51)
[2021-06-03] MEDS ORDERED: Witch Hazel Medicated Pads 100/Jar TOP PRN (03:51)
[2021-06-03] MEDS ORDERED: Ibuprofen 200 MG Tab, 24 Tab Bulk Bottle PO PRN (03:51)
--- NOTE | 2021-06-03 04:50 | PCM.DEL ---
L & D Note - General Info Date of Service: 06/03/21 Mother's Due Date: 06/10/21 - Delivery Note Labor: Spontaneous Delivery Outcome: Livebirth Infant Delivery Method: Spontaneous Vaginal Delivery-Single Infant Delivery Mode: Spontaneous Presentation: Right Occiput Anterior (ANNIE) Nuchal Cord: None Anesthesia Type: Epidural Episiotomy Type: None Laceration: Labial Suture size: 4-0 Placenta: Intact, Spontaneous Cord: 3 Vessels Estimated Blood Loss: 200 Resuscitation Needed: No [place]: [place] Used Provider: Tamy Rocha Score 1 min: 9 Score 5 min: 9 Second Stage Interventions: Reports: Encouragement Given, Laboring Down, Pushing Effectively, Pushing, Stirrups/Leg Supports Delivery Comments (Free Text/Narrative):: 06/03/21 at 39 weeks delivered viable male infant after spontaneous onset of labor. She received an epidural. AROM was performed for clear fluid. She labored down and napped after the epidural. She only pushed briefly. Baby boy was delivered onto mothers chest and delayed cord clamping was done for 2 minutes. He cried spontaneously. There was no nuchal cord present. Placenta delivered spontaneously, intact, 3 vessel cord. There were no vaginal, cervical, or perineal lacerations. There were 2 right labial splits and one left labial split all tacked together with 4-0 vicryl. FF and bleeding light, pitocin IV for third stage. Apgars 9, 9. weight 6 lb 7 oz. EBL 200 ml. Stages of labor: 1:9394-7446 2: 7535-3726 3: 6923-0304 Induction Criteria - Augmentation Estimated Pelvis: Reports: Adequate Weight Estimated:: Reports: AGA Reassuring Monitoring Strip: Yes Absence of Tachy Systole: Yes - General Info Date of Service: 06/03/21 Functional Status: Reports: Pain Controlled - Review of Systems General: Reports: No Symptoms HEENT: Reports: No Symptoms Pulmonary: Reports: No Symptoms Cardiovascular: Reports: No Symptoms Gastrointestinal: Reports: No Symptoms Genitourinary: Reports: No Symptoms Musculoskeletal: Reports: No Symptoms Skin: Reports: No Symptoms Neurological: Reports: No Symptoms Psychiatric: Reports: No Symptoms - Patient Data Vitals - Most Recent: Last Vital Signs Temp 35.6 C L 06/02/21 20:36 Pulse 69 06/03/21 01:40 Resp BP 87/51 L 06/03/21 01:40 Pulse Ox 96 06/03/21 01:13 Lab Results Last 24 Hours: Laboratory Results - last 24 hr 06/02/21 06/02/21 06/02/21 Range/Units 20:56 22:05 22:05 WBC 15.7 H (4.5-11.0) K/uL RBC 3.78 (3.30-5.50) M/uL Hgb 11.2 L (12.0-15.0) g/dL Hct 34.6 L (36.0-48.0) % MCV 92 (80-98) fL MCH 30 (27-31) pg MCHC 32 (32-36) % Plt Count 314 (150-400) K/uL Neut % (Auto) 70.6 H (36-66) % Lymph % (Auto) 21.0 L (24-44) % [place] % (Auto) 7.7 H (2-6) % Eos % (Auto) 0.5 L (2-4) % Baso % (Auto) 0.2 (0-1) % Urine Color Yellow (YELLOW) Urine Appearance Clear (CLEAR) Urine pH 5.5 (5.0-8.0) Ur Specific [place] >= 1.030 (1.008-1.030) Urine Protein Negative (NEGATIVE) mg/dL Urine Glucose (UA) Negative (NEGATIVE) mg/dL Urine Ketones Trace H (NEGATIVE) mg/dL Urine Occult Blood Negative (NEGATIVE) Urine Nitrite Negative (NEGATIVE) Urine Bilirubin Negative (NEGATIVE) Urine Urobilinogen 0.2 (0.2-1.0) EU/dL Ur Leukocyte Esterase Negative (NEGATIVE) Urine RBC 0-5 (0-5) Urine WBC 0-5 (0-5) Ur Epithelial Cells Few Amorphous Sediment Not seen Urine Bacteria Not seen Urine Mucus Not seen Urine Opiates Screen Negative (NEGATIVE) Ur Oxycodone Screen Negative (NEGATIVE) Urine Methadone Screen Negative (NEGATIVE) Ur Propoxyphene Screen Negative (NEGATIVE) Ur Barbiturates Screen Negative (NEGATIVE) Ur Tricyclics Screen Negative (NEGATIVE) Ur Phencyclidine Scrn Negative (NEGATIVE) Ur Amphetamine Screen Negative (NEGATIVE) U Methamphetamines Scrn Negative (NEGATIVE) Urine MDMA Screen Negative (NEGATIVE) U Benzodiazepines Scrn Negative (NEGATIVE) U Cocaine Metab Screen Negative (NEGATIVE) U Marijuana (THC) Screen Negative (NEGATIVE) Influenza Type A RNA (NEGATIVE) RSV RNA (INAAT) (NEGATIVE) Influenza Type B RNA (NEGATIVE) SARS-CoV-2 RNA (PARMJIT) (NEGATIVE) 06/02/21 Range/Units 22:07 WBC (4.5-11.0) K/uL RBC (3.30-5.50) M/uL Hgb (12.0-15.0) g/dL Hct (36.0-48.0) % MCV (80-98) fL MCH (27-31) pg MCHC (32-36) % Plt Count (150-400) K/uL Neut % (Auto) (36-66) % Lymph % (Auto) (24-44) % [place] % (Auto) (2-6) % Eos % (Auto) (2-4) % Baso % (Auto) (0-1) % Urine Color (YELLOW) Urine Appearance (CLEAR) Urine pH (5.0-8.0) Ur Specific [place] (1.008-1.030) Urine Protein (NEGATIVE) mg/dL Urine Glucose (UA) (NEGATIVE) mg/dL Urine Ketones (NEGATIVE) mg/dL Urine Occult Blood (NEGATIVE) Urine Nitrite (NEGATIVE) Urine Bilirubin (NEGATIVE) Urine Urobilinogen (0.2-1.0) EU/dL Ur Leukocyte Esterase (NEGATIVE) Urine RBC (0-5) Urine WBC (0-5) Ur Epithelial Cells Amorphous Sediment Urine Bacteria Urine Mucus Urine Opiates Screen (NEGATIVE) Ur Oxycodone Screen (NEGATIVE) Urine Methadone Screen (NEGATIVE) Ur Propoxyphene Screen (NEGATIVE) Ur Barbiturates Screen (NEGATIVE) Ur Tricyclics Screen (NEGATIVE) Ur Phencyclidine Scrn (NEGATIVE) Ur Amphetamine Screen (NEGATIVE) U Methamphetamines Scrn (NEGATIVE) Urine MDMA Screen (NEGATIVE) U Benzodiazepines Scrn (NEGATIVE) U Cocaine Metab Screen (NEGATIVE) U Marijuana (THC) Screen (NEGATIVE) Influenza Type A RNA Negative (NEGATIVE) RSV RNA (INAAT) Negative (NEGATIVE) Influenza Type B RNA Negative (NEGATIVE) SARS-CoV-2 RNA (PARMJIT) Negative (NEGATIVE) Med Orders - Current: Current Medications Acetaminophen (Acetaminophen 325 Mg Tab, 50 Tab Bulk Bottle) 0 mg PO Q4H PRN PRN Reason: Pain Benzocaine (Benzocaine 20% Top [place] 56 Gm Bottle) 0 gm TOP Q4H PRN PRN Reason: Perineal Comfort Measure Calcium Carbonate/Glycine (Calcium Carbonate 500 Mg Tab.Chew) 1,000 mg PO Q2H PRN PRN Reason: Indigestion Diphenhydramine HCl (Diphenhydramine 50 Mg/Ml Sdv) 25 mg IVPUSH Q6H PRN PRN Reason: Itching Diphenhydramine HCl (Diphenhydramine 50 Mg/Ml Sdv) 50 mg IVPUSH Q6H PRN PRN Reason: Itching Docusate Sodium (Docusate Sodium 100 Mg Cap) 100 mg PO BID PRN PRN Reason: Constipation Emollient Ointment (Lanolin 100% Cream 40 Gm Tube) 1 gm TOP ASDIRECTED PRN PRN Reason: Sore Nipples Ephedrine Sulfate (Ephedrine 50 Mg/Ml Sdv) 10 mg IVPUSH ASDIRECTED PRN PRN Reason: Hypotension Lactated Ringer's (Ringers, Lactated) 1,000 mls @ 125 mls/hr IV ASDIRECTED MINO Last Admin: 06/03/21 00:17 Dose: 125 mls/hr Documented by: Oxytocin/Sodium Chloride (Pitocin In Ns 20 Units/1,000 Ml) 20 unit in 1,000 mls @ 500 mls/hr IV TITRATE MINO; Protocol Ibuprofen (Ibuprofen 200 Mg Tab, 24 Tab Bulk Bottle) 600 mg PO Q6H PRN PRN Reason: Pain Naloxone HCl (Naloxone 0.4 Mg/Ml Sdv) 0.1 mg IVPUSH ASDIRECTED PRN PRN Reason: Oversedation Ondansetron HCl (Ondansetron 4 Mg/2 Ml Sdv) 4 mg IV Q4H PRN PRN Reason: Nausea/Vomiting Sodium Chloride (Sodium Chloride 0.9% 10 Ml Syringe) 10 ml FLUSH ASDIRECTED PRN PRN Reason: Keep Vein Open Witch Renea (Witch Renea Medicated Pads 100/Jar) 1 pad TOP ASDIRECTED PRN PRN Reason: Hemorrhoids Discontinued Medications Fentanyl (Fentanyl 100 Mcg/2 Ml Sdv) Confirm Administered Dose 100 mcg .ROUTE .[employer]-MED ONE Stop: 06/03/21 00:33 Sodium Chloride (Normal Saline) 1,000 mls @ 999 mls/hr IV .BOLUS ONE Stop: 06/03/21 00:20 Last Admin: 06/02/21 23:32 Dose: 999 mls/hr Documented by: Ropivacaine (Naropin 0.2%) Confirm Administered Dose 100 mls @ as directed .ROUTE .STK-MED ONE Stop: 06/03/21 00:34 - Exam Urinary Catheter Total Time: 0Days 0Hours General: Alert, Oriented HEENT: Pupils Equal, Pupils Reactive, Mucous Membr. Moist/[place] Neck: Supple Lungs: Clear to Auscultation, Normal Respiratory Effort Cardiovascular: Regular Rate, Regular Rhythm GI/Abdominal Exam: Normal Bowel Sounds, Soft, Non-Tender, Pelvis Stable (Female) Exam: Normal External Exam, Normal Bimanual Exam, Cervical Dilatation, Vaginal Bleeding Back Exam: Normal Inspection, Full Range of Motion Extremities: Normal Inspection, Non-Tender, No Pedal Edema Skin: Warm, Dry, Intact Neurological: No New Focal Deficit Psy/Mental Status: Alert, Normal Affect, Normal Mood - Problem List & Annotations (1) Active labor at term SNOMED Code(s): 42320059 Code(s): YGO3150 - Status: Acute Current Visit: Yes (2) Obstetric labial laceration, delivered, current hospitalization SNOMED Code(s): 043809556, 678568727, 954228083 Code(s): O70.0 - FIRST DEGREE PERINEAL LACERATION DURING DELIVERY Status: Acute Current Visit: Yes (3) started SNOMED Code(s): 130302037 Code(s): TFV2831 - Status: Acute Current Visit: Yes (4) Normal vaginal delivery SNOMED Code(s): 45734913, 113101653 Code(s): O80 - ENCOUNTER FOR FULL-TERM UNCOMPLICATED DELIVERY Status: Acute Current Visit: No - Problem List Review Problem List Initiated/Reviewed/Updated: Yes - My Orders Last 24 Hours: My Active Orders 06/02/21 Breakfast Regular Diet [DIET] 06/02/21 20:55 OB Check [OM.PC] Click To Edit 06/02/21 22:05 Patient Status [ADT] Routine Communication Order [RC] ASDIRECTED Notify Provider [RC] PRN Up ad Thelma [RC] ASDIRECTED Calcium Carbonate [Tums] 1,000 mg PO Q2H PRN Ondansetron [Zofran] 4 mg IV Q4H PRN Sodium Chloride 0.9% [Saline Flush] 10 ml FLUSH ASDIRECTED PRN DVT/VTE Prophylaxis Reflex [OM.PC] Routine Saline Lock Insert [OM.PC] Routine Resuscitation Status Routine 06/02/21 22:06 Notify Provider Vital Signs [RC] PRN VTE/DVT Education [RC] Click to Edit 06/02/21 22:15 Lactated Ringers [Ringers, Lactated] 1,000 ml IV ASDIRECTED 06/02/21 22:30 Oxytocin/Normal Saline [Pitocin in NS 20 Units/1,000 ML] 20 unit in 1,000 ml IV TITRATE 06/02/21 23:17 Oxygen Therapy [RC] ASDIRECTED Pulse Oximetry [RC] ASDIRECTED Vital Signs [RC] PER UNIT ROUTINE Medication Discontinuation Instructions [OM.PC] Routine 06/02/21 23:23 Communication Order [RC] ROUTINE Communication Order [RC] ROUTINE Communication Order [RC] ROUTINE Oxygen Therapy [RC] ASDIRECTED PCEA Epidural [RC] ASDIRECTED Pulse Oximetry [RC] ASDIRECTED Vital Signs [RC] PER UNIT ROUTINE Naloxone [Narcan] 0.1 mg IVPUSH ASDIRECTED PRN diphenhydrAMINE [Benadryl] 25 mg IVPUSH Q6H PRN diphenhydrAMINE [Benadryl] 50 mg IVPUSH Q6H PRN ePHEDrine [ePHEDrine sulfate] 10 mg IVPUSH ASDIRECTED PRN Epidural Catheter Management [OM.PC] Routine 06/03/21 01:28 Urinary Catheter Assessment [RC] ASDIRECTED 06/03/21 01:30 Insert Christine Catheter [Insert Urinary Catheter] [OM.PC] Q24H 06/03/21 03:51 May Shower [RC] ASDIRECTED Consult to Bakery Manager [CONS] Routine Acetaminophen [Tylenol Bulk Bottle] See Dose Instructions PO Q4H PRN Benzocaine [Rkjl-F-Ggcehth 20% [place]] See Dose Instructions TOP Q4H PRN Docusate Sodium [Colace] 100 mg PO BID PRN Ibuprofen [Motrin Bulk Bottle] 600 mg PO Q6H PRN Lanolin [Lansinoh HPA] 1 gm TOP ASDIRECTED PRN witch Renea [Tucks] 1 pad TOP ASDIRECTED PRN Assess Lochia [WOMSER] Per Unit Routine Assess Uterine Involution [WOMSER] Per Unit Routine 06/03/21 03:52 Patient Status [ADT] Routine Vital Signs [RC] PFP Ice Therapy [OM.PC] Per Unit Routine Perineal Care [OM.PC] Per Unit Routine Sitz Bath [OM.PC] Per Unit Routine 06/03/21 12:00 CBC WITH AUTO DIFF [HEME] Routine - Assessment Assessment:: 06/03/21 with at 39 weeks Labial splits all tacked together FF and bleeding light EBL 200 ml - Plan Plan:: 06/02/21 Assessment: at 39 6/7 weeks in active labor at term, spontaneous Membranes intact GBS negative O pos blood type Category 1 tracing Plan: Monitor labor progression Wants epidural Anticipate 06/03/21 Routine cares support Anticipate discharge 24-48 hours
[2021-06-03] MEDS: Sodium Chloride 0.9% 1,000 ML IV ONE (05:46)
--- NOTE | 2021-06-04 10:09 | PCM.PNPP ---
- General Info Date of Service: 06/04/21 Functional Status: Reports: Pain Controlled - Review of Systems General: Reports: No Symptoms HEENT: Reports: No Symptoms Pulmonary: Reports: No Symptoms Cardiovascular: Reports: No Symptoms Gastrointestinal: Reports: No Symptoms Genitourinary: Reports: No Symptoms Musculoskeletal: Reports: No Symptoms Skin: Reports: No Symptoms Neurological: Reports: No Symptoms Psychiatric: Reports: No Symptoms - General Info Date of Service: 06/04/21 - Patient Data Vital Signs - Most Recent: Last Vital Signs Temp 36.2 C 06/04/21 03:00 Pulse 66 06/04/21 03:00 Resp 16 06/04/21 03:00 BP 128/57 L 06/04/21 03:00 Pulse Ox 97 06/04/21 03:00 I&O - Last 24 Hours: Intake & Output 06/03/21 06/04/21 06/04/21 22:59 06:59 14:59 Intake Total 1999 Balance 1999 Lab Results - Last 24 Hours: Laboratory Results - last 24 hr 06/03/21 Range/Units 12:13 WBC 18.0 H (4.5-11.0) K/uL RBC 3.71 (3.30-5.50) M/uL Hgb 11.3 L (12.0-15.0) g/dL Hct 34.6 L (36.0-48.0) % MCV 93 (80-98) fL MCH 31 (27-31) pg MCHC 33 (32-36) % Plt Count 280 (150-400) K/uL Neut % (Auto) Not Reportable Lymph % (Auto) Not Reportable [place] % (Auto) Not Reportable Eos % (Auto) Not Reportable Baso % (Auto) Not Reportable Add Manual Diff Yes Neutrophils % (Manual) 78 H (36-66) % Lymphocytes % (Manual) 17 L (24-44) % Monocytes % (Manual) 5 (2-6) % Med Orders - Current: Current Medications Acetaminophen (Acetaminophen 325 Mg Tab, 50 Tab Bulk Bottle) 0 mg PO Q4H PRN PRN Reason: Pain Last Admin: 06/03/21 05:45 Dose: 1 dose Documented by: Benzocaine (Benzocaine 20% Top [place] 56 Gm Bottle) 0 gm TOP Q4H PRN PRN Reason: Perineal Comfort Measure Calcium Carbonate/Glycine (Calcium Carbonate 500 Mg Tab.Chew) 1,000 mg PO Q2H PRN PRN Reason: Indigestion Diphenhydramine HCl (Diphenhydramine 50 Mg/Ml Sdv) 25 mg IVPUSH Q6H PRN PRN Reason: Itching Diphenhydramine HCl (Diphenhydramine 50 Mg/Ml Sdv) 50 mg IVPUSH Q6H PRN PRN Reason: Itching Docusate Sodium (Docusate Sodium 100 Mg Cap) 100 mg PO BID PRN PRN Reason: Constipation Emollient Ointment (Lanolin 100% Cream 40 Gm Tube) 1 gm TOP ASDIRECTED PRN PRN Reason: Sore Nipples Last Admin: 06/03/21 05:43 Dose: 1 applic Documented by: Ephedrine Sulfate (Ephedrine 50 Mg/Ml Sdv) 10 mg IVPUSH ASDIRECTED PRN PRN Reason: Hypotension Ropivacaine 200 mg/ Premix 100 mls @ 0 mls/hr EPIDUR ASDIRECTED [facility] Last Admin: 06/03/21 00:20 Dose: 12 mls/hr Documented by: Ibuprofen (Ibuprofen 200 Mg Tab, 24 Tab Bulk Bottle) 600 mg PO Q6H PRN PRN Reason: Pain Last Admin: 06/03/21 05:44 Dose: 1 tab Documented by: Naloxone HCl (Naloxone 0.4 Mg/Ml Sdv) 0.1 mg IVPUSH ASDIRECTED PRN PRN Reason: Oversedation Ondansetron HCl (Ondansetron 4 Mg/2 Ml Sdv) 4 mg IV Q4H PRN PRN Reason: Nausea/Vomiting Sodium Chloride (Sodium Chloride 0.9% 10 Ml Syringe) 10 ml FLUSH ASDIRECTED PRN PRN Reason: Keep Vein Open Witch Renea (Witch Renea Medicated Pads 100/Jar) 1 pad TOP ASDIRECTED PRN PRN Reason: Hemorrhoids Discontinued Medications Fentanyl (Fentanyl 100 Mcg/2 Ml Sdv) Confirm Administered Dose 100 mcg .ROUTE .STK-MED ONE Stop: 06/03/21 00:33 Lactated Ringer's (Ringers, Lactated) 1,000 mls @ 125 mls/hr IV ASDIRECTED [facility] Last Admin: 06/03/21 00:17 Dose: 125 mls/hr Documented by: Oxytocin/Sodium Chloride (Pitocin In Ns 20 Units/1,000 Ml) 20 unit in 1,000 mls @ 500 mls/hr IV TITRATE MINO; Protocol Last Admin: 06/03/21 05:47 Dose: 999 ml/hr, 999 mls/hr Documented by: Sodium Chloride (Normal Saline) 1,000 mls @ 999 mls/hr IV .BOLUS ONE Stop: 06/03/21 00:20 Last Infusion: 06/03/21 00:33 Dose: Infused Documented by: Ropivacaine (Naropin 0.2%) Confirm Administered Dose 100 mls @ as directed .ROUTE .STK-MED ONE Stop: 06/03/21 00:34 - Interaction Infant Disposition, : in Room with Family Interaction: Holding Infant Feeding: Breastfed ; Nursed Well Support Person: Significant Other - Recovery Exam Fundal Tone: Firm Fundal Level: At Umbilicus Fundal Placement: Midline Lochia Amount: Small Lochia Color: Rubra/Red Perineum Description: Intact, Minimal Bruising/Swelling Episiotomy/Laceration: Approximated Bladder Status: Voiding - Exam General: Alert, Oriented HEENT: Pupils Equal, Pupils Reactive, Mucous Membr. Moist/[place] Neck: Supple Lungs: Clear to Auscultation, Normal Respiratory Effort Cardiovascular: Regular Rate, Regular Rhythm GI/Abdominal Exam: Normal Bowel Sounds, Soft, Non-Tender, Pelvis Stable Extremities: Normal Inspection, Normal Range of Motion, Non-Tender, No Pedal Edema, Normal Capillary Refill Skin: Warm, Dry, Intact Neurological: No New Focal Deficit Psy/Mental Status: Alert, Normal Affect, Normal Mood - Problem List & Annotations (1) Active labor at term SNOMED Code(s): 59645957 Code(s): ZUD3123 - Status: Acute Current Visit: Yes (2) Obstetric labial laceration, delivered, current hospitalization SNOMED Code(s): 770143955, 028194402, 535398232 Code(s): O70.0 - FIRST DEGREE PERINEAL LACERATION DURING DELIVERY Status: Acute Current Visit: Yes (3) started SNOMED Code(s): 605192308 Code(s): RRN1443 - Status: Acute Current Visit: Yes (4) Normal vaginal delivery SNOMED Code(s): 46718706, 227404777 Code(s): O80 - ENCOUNTER FOR FULL-TERM UNCOMPLICATED DELIVERY Status: Acute Current Visit: No - Problem List Review Problem List Initiated/Reviewed/Updated: Yes - Assessment Assessment:: 06/03/21 with at 39 weeks Labial splits all tacked together FF and bleeding light EBL 200 ml 06/04/21 PP day 1, no complications FF and bleeding light going well Voiding without difficulty, bottom feels fine Hgb stable, AVSS - Plan Plan:: 06/02/21 Assessment: at 39 6/7 weeks in active labor at term, spontaneous Membranes intact GBS negative O pos blood type Category 1 tracing Plan: Monitor labor progression Wants epidural Anticipate 06/03/21 Routine cares support Anticipate discharge 24-48 hours 06/04/21 Discharge home today 6 week exam
[2021-06-04 12:22] VITALS: BP 126/72; PULSE 59
== END 2021-06-04 13:00 | disposition home or self-care (01) | DRG 807 ==
LOC: JP.OBCHECK 20:23 → JP.OB 20:25 → JP.OBCHECK 22:00 → JP.OB 22:05 → OBSVTOIN 06-03 03:00 → JP.MS 06-03 06:26
PROVIDERS: ADMIT Advanced Practice Midwife; ATTEND Advanced Practice Midwife
PROC: 10E0XZZ Delivery of Products of Conception, External Approach (ICD-10-PCS; principal; 2021-06-03)
PROC: 10907ZC Drainage of Amniotic Fluid, Therapeutic from Products of Conception, Via Natural or Artificial Opening (ICD-10-PCS; 2021-06-03)
PROC: 3E0R3BZ Introduction of Anesthetic Agent into Spinal Canal, Percutaneous Approach (ICD-10-PCS; 2021-06-03)
PROC: 00HU33Z Insertion of Infusion Device into Spinal Canal, Percutaneous Approach (ICD-10-PCS; 2021-06-03)
PROC: 0UQMXZZ Repair Vulva, External Approach (ICD-10-PCS; 2021-06-03)
DX: O99.334 Smoking (tobacco) complicating childbirth (principal); Z37.0 Single live birth; F17.200 Nicotine dependence, unspecified, uncomplicated; Z3A.39 39 weeks gestation of pregnancy; O70.0 First degree perineal laceration during delivery; Z20.822 Contact with and (suspected) exposure to COVID-19
CPT/HCPCS: 0241U; 36415; 51702; 80305-QW; 81001; 85025; 99211; A9270-GY; J2590; J2795; J3010; J7030; J7120

== ENCOUNTER 2022-02-04 19:14 | Emergency (ER) | payer MEDICAID ==
[2022-02-04 19:34] VITALS: BP 113/62; PULSE 68
[2022-02-04] MEDS ORDERED: Acetaminophen/HYDROcodone 325-5 MG Tab PO ONE (21:05)
[2022-02-04] MEDS ORDERED: Ketorolac 10 MG Tab PO ONE (21:15)
== END 2022-02-04 21:59 | disposition home or self-care (01) ==
LOC: JP.ED 19:14
DX: S82.302A Unspecified fracture of lower end of left tibia, initial encounter for closed fracture (principal); X50.1XXA Overexertion from prolonged static or awkward postures, initial encounter
CPT/HCPCS: 73590; 73610; 99283; A9270